=== PATIENT | female | born 1940 | race Caucasian/White ===

== ENCOUNTER 2019-09-06 09:58 | Outpatient (CLI) | payer MEDICARE, SELFPAY ==
--- NOTE | 2019-09-06 10:08 | USCV_ITS ---
Janny Sesay Age: 78 Gender: F : 1940 Exam Date: 09/06/2019 10:14 Ordering Phys: Katey Arizmendi MD Technologist: Exam Location: [facility] [place] Indication: BILATERAL LEG PAIN RIGHT LEFT Brachial 158.00 mmHg Brachial 151.00 mmHg Pressure (mmHg) Waveform Pressure (mmHg) Waveform 192.00 HOG SCALDER 185.00 177.00 DPA 166.00 1.22 Ankle/Brachial Index 1.17 138.00 Pre-Exercise Toe Pressure 115.00 0.87 Pre-Exercise Toe/Brachial Index 0.73 FINDINGS Normal resting ABIs bilaterally Normal resting TBIs bilaterally Elevated ankle pressures CONCLUSIONS No significant arterial obstruction, based on the above findings Dr Kendal Morgan MD FACC (Electronically Signed) Final Date: 06 September 2019 16:09 S
== END 2019-09-06 09:59 | disposition home or self-care (01) ==
LOC: RAD 10:04
PROVIDERS: PCP Family Medicine; Visit Provider Family Medicine
DX: M79.604 Pain in right leg (principal); M79.605 Pain in left leg
CPT/HCPCS: 93922

== ENCOUNTER 2020-10-08 17:27 | Emergency (ER) | payer MEDICARE, SELFPAY ==
[2020-10-08 17:40] VITALS: BP 159/80; PULSE 84; RESP 18; TEMP 37.2; O2SAT 95; BMI 30.8
--- NOTE | 2020-10-08 19:04 | ECG_ITS ---
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 Measurements Intervals [place] Rate: 75 P: 25 OR: 139 QRS: 78 QRSD: 84 T: 69 QT: 352 QTc: 395 Interpretive Statements SINUS RHYTHM NONSPECIFIC ST & T-WAVE ABNORMALITY Compared to ECG 05/26/2014 12:21:56 T-wave abnormality now present Myocardial infarct finding no longer present Electronically Signed On 10-09-2020 6:12:35 CDT by Iva Mclean M.D. [id number]
--- NOTE | 2020-10-08 19:04 | XRR_ITS ---
PROCEDURE INFORMATION: Exam: XR Chest Exam date and time: 10/08/2020 7:04 PM Age: 79 years old Clinical indication: Right-sided; Patient HX: Right sided cp w/ right shoulder pain & back pain TECHNIQUE: Imaging protocol: XR of the chest. Views: 1 view. Total images: 1 COMPARISON: CR Ribs LEFT w PA Chest [id number] 11/25/2014 5:18 PM FINDINGS: Lungs: No visible active interstitial or alveolar airspace disease. Pleural spaces: Unremarkable. No pleural effusion. No pneumothorax. Heart/Mediastinum: Cardiac structures and configuration within normal limits for age and stable. Mild arteriosclerosis. Bones/joints: Unremarkable for age. XR/XR chest 1V portable [id number] IMPRESSION: Nonacute.
[2020-10-08 19:40] LABS: Basophils # 0.1 10^3/uL (0.0-0.1); Basophils % 0.5 %; Eosinophils % 0.3 %; Hematocrit 45.6 % (37.0-47.0); Hemoglobin 14.5 g/dL (11.5-15.3); Lymphocytes # 1.5 10^3/uL (0.8-4.8); Lymphocytes % 13.9 %; Mean Corpuscular HGB Conc 31.8 g/dL (30.0-36.0); Mean Corpuscular Volume 94.4 fL (81-99); Mean Platelet Volume 10.1 fL (7.4-10.4); Monocytes # 0.9 10^3/uL (0.2-0.9); Monocytes % 8.4 %; Neutrophils # 8.24 10^3/uL (1.8-7.7); Neutrophils % 76.6 %; Nucleated Red Blood Cells % 0 %; Platelet Count 249 10^3/cmm (130-400); Red Blood Count 4.83 10^6/uL (4.1-5.3); Red Cell Distribution Width 13.2 % (12.1-15.1); White Blood Count 10.7 10^3/uL (4.0-10.0)
[2020-10-08 20:18] LABS: Alanine Aminotransferase 20 U/L (0-33); Albumin Level 4.1 g/dL (3.5-5.2); Alkaline Phosphatase 98 IU/L (35-105); Anion Gap 14.1 (5-19); Aspartate Amino Transferase 19 U/L (0-32); Blood Urea Nitrogen 12 mg/dL (8-23); Calcium 9.2 mg/dL (8.5-10.5); Carbon Dioxide 29 mmol/L (22-29); Chloride 101 mmol/L (98-107); Globulin 3.2 g/dL (1.3-4.6); Glucose 116 mg/dL (65-115); Osmolality Calculated 291 mOsm/kg (285-295); Potassium 4.1 mmol/L (3.5-5.1); Sodium 140 mmol/L (136-145); Total Bilirubin 0.6 mg/dL (0.15-1.2); Total Protein 7.3 g/dL (6.6-8.7)
[2020-10-08 20:47] LABS: Troponin(5th) Baseline 45 ng/L (0-10)
[2020-10-08 22:13] LABS: Troponin 5 2HR 38.58 ng/L (0-10)
[2020-10-08 22:14] LABS: Troponin 5 2HR Delta -6.42 ABS# (0-10)
--- NOTE | 2020-10-09 00:21 | W.ED.CHESTPA ---
HPI - Chest Pain General: Chief Complaint: Chest Pain Stated Complaint: Chest pain, back pain, Time Seen by Provider: 10/09/20 00:21 History of Present Illness: HPI narrative: 79-year-old female comes in today with right-sided chest wall pain. Patient reports the pain starts in her neck and goes into her right lateral rib area. Patient appears in mild to moderate pain. Patient appears well. Review of Systems General: Reports: 10 or more systems reviewed and unremarkable except in HPI and below Card: Reports: chest pain Physical Exam Const: COMMON NORMALS: no acute distress and patient oriented x3 GENERAL APPEARANCE: cooperative HENMT: COMMON NORMALS: normocephalic and Normal external nose present HEAD & SCALP: normal to inspection and normocephalic NOSE: Normal external nose present MOUTH: Normal oral and palatal mucosa present Eye: GENERAL EYE: appearance normal, both eyes and all related structures Neck/C-Spine: COMMON NORMALS: full ROM Lymph: LYMPHATIC: no lymphadenopathy noted Chest: OTHER: Right posterior chest wall tenderness. Resp: COMMON NORMALS: normal respiratory effort EFFORT & INSPECTION: Yes able to speak in complete sentences Cardio: COMMON NORMALS: regular rate and regular rhythm RATE: regular rate RHYTHM: regular rhythm GI: COMMON NORMALS: non-tender : COMMON NORMALS: Yes no CVA tenderness BLADDER/KIDNEY EXAM: Yes no CVA tenderness Back/Pelvis: COMMON NORMALS: no CVA tenderness and thoracic and lumbar spine normal to inspection Extremity: COMMON NORMALS: normal to inspection Neuro: COMMON NORMALS: patient oriented x3 and moves all extremities Psych: COMMON NORMALS: mental status grossly normal and cooperative Skin: COMMON NORMALS: no rashes or lesions noted GENERAL SKIN EXAM: no rashes or lesions noted Course Vital Signs: Vital signs: Vital Signs Temperature 98.9 F 10/08/20 17:40 Pulse Rate 78 10/09/20 00:28 Respiratory Rate 18 10/09/20 00:28 Blood Pressure 135/73 10/09/20 00:28 Pulse Oximetry 97 10/09/20 00:28 MDM - Chest Pain MDM Narrative: Medical decision making narrative: Patient came in tonight for complaints of right upper back and chest wall discomfort. On exam patient has tenderness to the right lateral posterior rib area. Patient had good range of motion of the shoulder and neck. There was some muscle tightening and spasming in the right mid upper back. Differential diagnosis includes but not limited to muscle spasm, torticollis, costochondritis. X-ray of the chest indicated no fracture or abnormalities. Laboratory values was unremarkable. Troponins was 45 at baseline and 36 at the 2-hour jade indicating a negative delta curve. EKG showed no ST elevation. Feel the patient probably has a musculoskeletal pain. Patient was given a dose of Toradol in the ER and a muscle relaxer to take when she got home. Patient will be continued on a naproxen and tizanidine. Patient reported understanding and agreed to plan. Lab Data: Labs: Lab Results 10/08/20 10/08/20 10/08/20 Range/Units 19:32 19:32 19:32 WBC 10.7 H (4.0-10.0) 10^3/ uL RBC 4.83 (4.1-5.3) 10^6/u L Hgb 14.5 (11.5-15.3) g/dL Hct 45.6 (37.0-47.0) % MCV 94.4 (81-99) fL MCH 30.0 (28.0-34.0) pg MCHC 31.8 (30.0-36.0) g/dL RDW 13.2 (12.1-15.1) % Plt Count 249 (130-400) 10^3/c mm MPV 10.1 (7.4-10.4) fL Neut % (Auto) 76.6 % Lymph % (Auto) 13.9 % [place] % (Auto) 8.4 % Eos % (Auto) 0.3 % Baso % (Auto) 0.5 % Neut # (Auto) 8.24 H (1.8-7.7) 10^3/u L Lymph # (Auto) 1.5 (0.8-4.8) 10^3/u L [place] # (Auto) 0.9 (0.2-0.9) 10^3/u L Eos # (Auto) 0.0 (0.0-0.8) 10^3/u L Baso # (Auto) 0.1 (0.0-0.1) 10^3/u L Nucleated RBC % (a uto) 0 % Nucleated RBCs # 0.0 /100WBC Sodium 140 (136-145) mmol/L Potassium 4.1 (3.5-5.1) mmol/L Chloride 101 (98-107) mmol/L Carbon Dioxide 29 (22-29) mmol/L Anion Gap 14.1 (5-19) BUN 12 (8-23) mg/dL Creatinine 0.6 (0.5-0.9) mg/dL GFR Calculation Not Reportable Glucose 116 H (65-115) mg/dL Calculated Osmolal ity 291 (285-295) mOsm/k g Calcium 9.2 (8.5-10.5) mg/dL Total Bilirubin 0.6 (0.15-1.2) mg/dL AST 19 (0-32) U/L ALT 20 (0-33) U/L Alkaline Phosphata se 98 (35-105) IU/L Troponin T Baselin e 45 H (0-10) ng/L Troponin T 120 Min [place] (0-10) ng/L Delta Troponin T (0-10) ABS# Total Protein 7.3 (6.6-8.7) g/dL Albumin 4.1 (3.5-5.2) g/dL Globulin 3.2 (1.3-4.6) g/dL 10/08/20 Range/Units 21:41 WBC (4.0-10.0) 10^3/ uL RBC (4.1-5.3) 10^6/u L Hgb (11.5-15.3) g/dL Hct (37.0-47.0) % MCV (81-99) fL MCH (28.0-34.0) pg MCHC (30.0-36.0) g/dL RDW (12.1-15.1) % Plt Count (130-400) 10^3/c mm MPV (7.4-10.4) fL Neut % (Auto) % Lymph % (Auto) % [place] % (Auto) % Eos % (Auto) % Baso % (Auto) % Neut # (Auto) (1.8-7.7) 10^3/u L Lymph # (Auto) (0.8-4.8) 10^3/u L [place] # (Auto) (0.2-0.9) 10^3/u L Eos # (Auto) (0.0-0.8) 10^3/u L Baso # (Auto) (0.0-0.1) 10^3/u L Nucleated RBC % (a uto) % Nucleated RBCs # /100WBC Sodium (136-145) mmol/L Potassium (3.5-5.1) mmol/L Chloride (98-107) mmol/L Carbon Dioxide (22-29) mmol/L Anion Gap (5-19) BUN (8-23) mg/dL Creatinine (0.5-0.9) mg/dL GFR Calculation Glucose (65-115) mg/dL Calculated Osmolal ity (285-295) mOsm/k g Calcium (8.5-10.5) mg/dL Total Bilirubin (0.15-1.2) mg/dL AST (0-32) U/L ALT (0-33) U/L Alkaline Phosphata se (35-105) IU/L Troponin T Baselin e (0-10) ng/L Troponin T 120 Min [place] 38.58 H (0-10) ng/L Delta Troponin T -6.42 L (0-10) ABS# Total Protein (6.6-8.7) g/dL Albumin (3.5-5.2) g/dL Globulin (1.3-4.6) g/dL Discharge Plan Discharge Patient Disposition: Home Clinical Impression: Atypical chest pain, Costalchondritis Condition: Stable Prescriptions: New naproxen 500 mg tablet 500 mg PO BID Qty: 14 RF: 0 tizanidine 4 mg tablet 4 mg PO BID PRN (Reason: muscle spasticity) Qty: 14 RF: 0 Discharge Orders: Discharge ED (Routine); Ordered 10/09/20 Ordered By: Juan J Juarez Referrals: Katey Arizmendi MD [Primary Care Provider] - Discharge Diet: Usual diet Discharge Activity: Increase activity as tolerated Patient Instructions: Muscle Spasm (ED), Opioid Safety Activity Restrictions/Additional Instructions: Activity as tolerated. Gentle stretching and range of motion exercises. Use ice or heat to the area for comfort. Drink plenty of water with medication. Follow-up with primary care for further instruction. Return to the ER for new concerns or worsening symptoms. Coding Level of Care Code ED Terrazzo Finisher Helper for Chg Fwd Exam Comprehensive
[2020-10-09 00:28] VITALS: BP 135/73; PULSE 78; RESP 18; O2SAT 97
[2020-10-09] MEDS: ketorolac 30 mg/mL INJ IM (00:45)
[2020-10-09] MEDS: cyclobenzaprine 10 mg Tablet 5 MG PO (01:00)
[2020-10-09 01:08] VITALS: BP 136/65; PULSE 88; RESP 18; O2SAT 96
== END 2020-10-09 01:09 | disposition home or self-care (01) ==
PROVIDERS: Emergency Medicine; Emergency Provider Nurse Practitioner Family; PCP Family Medicine
DX: R07.89 Other chest pain (principal); M94.0 Chondrocostal junction syndrome [Tietze]
CPT/HCPCS: 36415; 71045; 80053; 84484; 85025; 93005; 96372; 99283; J1885

== ENCOUNTER 2022-06-20 11:10 | Outpatient (CLI) | payer MEDICARE, SELFPAY ==
--- NOTE | 2022-06-20 11:26 | MM_ITS ---
WS: [id number] Bilateral screening 3D tomosynthesis digital mammogram, 06/20/2022 Clinical Data: SCREENING Comparison: 11/30/2012, 01/23/2009, 03/05/2007. Findings: The breast parenchymal pattern shows fibroglandular tissue. No spiculated masses or clustered calcifi cations are seen. There are no secondary signs of carcinoma. There are calcifications in the gar of small vessels. MM/[place] [id number] Impression: 1. Negative bilateral mammogram unchanged. 2. Recommend annual screening mammograms. BIRADS: 1-Negative FOLLOW UP: 1 Year Follow-up The CAD maturity checker was used.
== END 2022-06-20 11:11 | disposition home or self-care (01) ==
PROVIDERS: PCP Family Medicine; Visit Provider Family Medicine
DX: Z12.31 Encounter for screening mammogram for malignant neoplasm of breast (principal)
CPT/HCPCS: 77063; 77067

== ENCOUNTER 2022-07-08 10:06 | Outpatient (CLI) | payer MEDICARE, SELFPAY ==
[2022-07-08 10:43] VITALS: BMI 29.5
--- NOTE | 2022-07-08 11:24 | ECG_ITS ---
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 Interpretive Statements NAME OF STUDY: LEXISCAN SESTAMIBI STRESS TEST INDICATION: [Chest Pain, ] Procedure: At the baseline, the blood pressure was 132/83 mmHg with a heart rate of 56 bpm. The electrocardiogram showed normal sinus rhythm, normal axis with normal ST and T's. The Lexiscan was infused over a period of 20 seconds. A total of 0.4 mg of Lexiscan was infused. The stress phase was continued for a total of 5 minutes. Heart rate was at the end of stress phase was 75 bpm and a blood pressure of 114/74 mmHg. The EKG at the peak infusion revealed normal sinus rhythm with no significant ST-T wave changes. Sestamibi was injected 20 seconds after the Lexiscan infusion. Blood pressure at the end of recovery phase was 118/75 mmHg with a heart rate of 73 bpm. Conclusion: 1. Normal EKG response to Lexiscan infusion 2. No Lexiscan induced chest pain or cardiac arrhythmia. 3. Normal blood pressure and heart rate response. 4. Sestamibi/sestamibi perfusion scan pending; see separate report. Electronically Signed On 07-10-2022 15:17:43 CDT by Jonathan Larry M.D. [id number]
--- NOTE | 2022-07-08 11:25 | NMCV_ITS ---
NM andrew perf SPECT r/s* [id number] Janny Sesay Age: 81 Gender: F : 1940 Exam Date: 07/08/2022 11:25 Ordering Phys: Katey Arizmendi MD Technologist: SANDI Mendoza Exam Location: [facility] Indications: Chest pain, SOB STRESS TEST Please see separate stress test report in [facility] for full findings IMAGE PROTOCOL Rest/Stress 1 Lexiscan Day Radiopharmaceutical Dose (mCi) Administration Site Administered by Rest: Tc-99m 10.1 IV Florin Palm, BILLING AND ACCOUNTING STAFF ASSISTANT Sestamibi Stress:Tc-99m 32.7 IV Florin Palm, BILLING AND ACCOUNTING STAFF ASSISTANT Sestamibi Rest: 08-Jul-2022 60 Discovery 630 Stress: 08-Jul-2022 30 Discovery 630 0.4mg Lexiscan. Supine position only as patient was unable to lay prone. SPECT RESULTS Technical Quality: Excellent Raw Data Analysis: Normal Image Corrections: No attenuation or motion correction applied Summed Stress Score: 0 Summed Rest Score: 0 Summed Difference Score: 0 PERFUSION FINDINGS SPECT images demonstrate homogeneous tracer distribution throughout the myocardium. FUNCTIONAL RESULTS (calculated via Gated SPECT) Stress Image LV EF (%): 74 Stress EDV (mL):69 TID: 1.03 Stress ESV (mL):18 FUNCTIONAL FINDINGS: There is normal left ventricular systolic function. IMPRESSIONS 1. Normal myocardial perfusion imaging with no evidence of ischemia 2. LV systolic fucntion is normal Jonathan Larry MD (Electronically Signed) Final Date: 09 July 2022 15:28 S
[2022-07-08] MEDS: regadenoson 0.4 Mg/5 ml Syringe IVP (12:45)
[2022-07-08 13:08] VITALS: BP 118/75; PULSE 74
== END 2022-07-08 10:07 | disposition home or self-care (01) ==
PROVIDERS: PCP Family Medicine; Visit Provider Family Medicine
DX: Z12.31 Encounter for screening mammogram for malignant neoplasm of breast (principal); R06.02 Shortness of breath
CPT/HCPCS: 36415; 78452; 93017; 96374; A9500; J2785

== ENCOUNTER → 2023-06-15 12:44 | Outpatient (BNVA) | payer MEDICARE, SELFPAY | PROVIDERS: PCP Family Medicine; Visit Provider Nurse Practitioner Family | DX: D18.01 Hemangioma of skin and subcutaneous tissue (principal); L81.4 Other melanin hyperpigmentation; L57.8 Other skin changes due to chronic exposure to nonionizing radiation; L82.1 Other seborrheic keratosis; L57.0 Actinic keratosis; L82.0 Inflamed seborrheic keratosis; L44.8 Other specified papulosquamous disorders; Z85.828 Personal history of other malignant neoplasm of skin; Z85.820 Personal history of malignant melanoma of skin | CPT/HCPCS: 17004; 17110; 99203 ==

== ENCOUNTER 2023-06-22 10:46 | Outpatient (CLI) | payer MEDICARE, SELFPAY ==
--- NOTE | 2023-06-22 10:49 | MM_ITS ---
WS: [id number] Bilateral screening 3D tomosynthesis digital mammogram, 06/22/2023 Clinical Data: SCREENING Comparison: 06/20/2022, 11/30/2012, 01/23/2009, 03/05/2007. Findings: The breast parenchymal pattern shows fibroglandular tissue. No spiculated masses or clustered calcifi cations are seen. There are no secondary signs of carcinoma. There are ductal and vascular calcificat ions in both breasts. Impression: 1. Negative bilateral mammogram unchanged. 2. Recommend annual screening mammograms. MM/[place] [id number] BIRADS: 1-Negative FOLLOW UP: 1 Year Follow-up The CAD frequency checker was used.
== END 2023-06-22 10:47 | disposition home or self-care (01) ==
LOC: RAD 10:47
PROVIDERS: PCP Family Medicine; Visit Provider Family Medicine
DX: Z12.31 Encounter for screening mammogram for malignant neoplasm of breast (principal)
CPT/HCPCS: 77063; 77067

== ENCOUNTER → 2023-10-18 13:15 | Outpatient (BNVA) | payer MEDICARE, SELFPAY | PROVIDERS: PCP Family Medicine; Visit Provider Nurse Practitioner Family | DX: L57.0 Actinic keratosis (principal); D18.01 Hemangioma of skin and subcutaneous tissue; L81.4 Other melanin hyperpigmentation; L57.8 Other skin changes due to chronic exposure to nonionizing radiation; L82.1 Other seborrheic keratosis; L44.8 Other specified papulosquamous disorders; Z85.820 Personal history of malignant melanoma of skin; Z85.828 Personal history of other malignant neoplasm of skin | CPT/HCPCS: 17004; 99214 ==

== ENCOUNTER 2023-12-28 16:33 | Inpatient (IN) | payer MEDICARE, SELFPAY ==
[2023-12-28] VITALS (44 sets, daily range): BP systolic 100–183; BP diastolic 58–99; PULSE 55–102; RESP 12–29; TEMP 36.6; O2SAT 89–98; BMI 32.5
--- NOTE | 2023-12-28 16:35 | ECG_ITS ---
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 Measurements Intervals [place] Rate: 65 P: 0 ND: 149 QRS: 71 QRSD: 93 T: 45 QT: 396 QTc: 413 Interpretive Statements SINUS RHYTHM Early repolarization changes NONSPECIFIC T-WAVE ABNORMALITY Compared to ECG 10/08/2020 17:39:06 No significant changes Electronically Signed On 12-29-2023 20:25:17 CDT by Kendal Morgan M.D. [id number]
--- NOTE | 2023-12-28 16:35 | XRR_ITS ---
PROCEDURE INFORMATION: Exam: XR Chest Exam date and time: 12/28/2023 4:47 PM Age: 83 years old Clinical indication: Pain; Chest pressure; Additional info: Cp TECHNIQUE: Imaging protocol: Radiologic exam of the chest. Views: 1 view. COMPARISON: CR XR chest 2V* [id number] 06/09/2022 12:20 PM FINDINGS: Lungs: Unremarkable. No consolidation. Pleural spaces: Unremarkable. No pleural effusion. No pneumothorax. Heart/Mediastinum: Unremarkable. No cardiomegaly. Diaphragm: There is elevation/eventration left hemidiaphragm which is essentially unchanged. Bones/joints: Unremarkable. XR/XR chest 1V portable [id number] IMPRESSION: No acute findings.
--- NOTE | 2023-12-28 16:45 | W.ED.CHESTPA ---
Documented by User: Grant Palomino DO 12/29/23 05:13 HPI - Chest Pain General: Chief Complaint: Chest Pain Stated Complaint: Chest Pain Time Seen by Provider: 12/28/23 16:38 History of Present Illness: 83-year-old female presents to the emergency room with complaints of chest discomfort and shortness of breath. The patient notes that within the activity such as vacuuming and cleaning her house she gets shortness of breath chest discomfort and needs to sit and rest symptoms resolved shortly after she rests. She is not having any chest pain at this time. No chest pain or shortness of breath. Associated symptoms: Deny abdominal pain, dyspnea or fever(s) Related Data Home Medications Medication Instructions Recorded Confirmed propranolol 60 mg tablet 60 mg PO DIRECTED 12/28/23 12/28/23 simvastatin 10 mg tablet 10 mg PO BID Cholesterol 12/28/23 12/28/23 Allergies Allergy/AdvReac Type Severity Reaction Status Date / Time No Known Allergies Allergy Verified 10/08/20 17:40 Review of Systems Const: Denies: fever(s) or chills Card: Reports: chest pain Resp: Denies: dyspnea GI: Denies: abdominal pain : Denies: dysuria, urinary frequency or urinary urgency Musc: Denies: neck pain or back pain Skin/Breast: Denies: rash PFSH ED PFSH: Medical History (Updated 12/28/23 @ 22:55 by Rere Cortez MD) HLD (hyperlipidemia) Familial tremor HTN (hypertension) Social History (Updated 12/28/23 @ 22:35 by Rere Cortez MD) Substance/Drug Use: never Physical Exam Const: GENERAL APPEARANCE: cooperative ORIENTATION/CONSCIOUSNESS: Yes awake, Yes oriented to person, Yes oriented to place and Yes oriented to time HENMT: COMMON NORMALS: normocephalic, atraumatic and hearing grossly normal bilaterally HEAD & SCALP: normocephalic and atraumatic Resp: COMMON NORMALS: normal respiratory effort, No retractions, No use of accessory muscles and clear to auscultation bilaterally AUSCULTATION: clear to auscultation bilaterally Cardio: COMMON NORMALS: regular rate, regular rhythm and No murmurs present (Cardio) RATE: regular rate RHYTHM: regular rhythm GI: COMMON NORMALS: Soft to palpation and No hepatosplenomegaly present AUSCULTATION: Yes normoactive bowel sounds PALPATION: Yes Soft to palpation, No Tenderness to palpation present (GI), No Guarding due to palpation present (GI) and Yes No hepatosplenomegaly present Extremity: COMMON NORMALS: normal to inspection, capillary refill normal, no clubbing, cyanosis or edema, no calf tenderness and no pedal edema Neuro: SENSORIUM/ORIENTATION: Yes oriented to person, Yes oriented to place and Yes oriented to time Skin: COMMON NORMALS: no rashes or lesions noted GENERAL SKIN EXAM: no rashes or lesions noted Course Vital Signs: Vital signs: Vital Signs Temperature 97.6 F 12/29/23 03:54 Pulse Rate 63 12/29/23 03:54 Respiratory Rate 15 12/29/23 03:54 Blood Pressure 101/51 12/29/23 03:54 Pulse Oximetry 96 12/29/23 03:54 Oxygen Delivery Nh thod Room Air 12/28/23 21:13 MDM - Chest Pain Medical Decision Making Signed out Floyd Patient care was transitioned to ne at shift change. Differential diagnosis for patient with chest pain includes but is not limited to and based on the above HPI, review of systems and physical exam: Pneumonia. unstable angina. angina. Acute coronary syndrome / LA. Pulmonary embolism. Costochondritis / musculoskeletal. Pleurisy. Pericarditis. Esophageal spasm. Pancreatis. Cholecystitis. Orders placed to evaluate differential diagnosis based on the above differential, HPI and physical exam Chest x-ray: No acute process. No infiltrate. No pneumothorax. This was reviewed and interpreted by myself the ER physician. EKG: Time 1632. Rate 65. Normal sinus rhythm, nonspecific T wave abnormality, no ectopy, normal CA & QRS intervals, This was reviewed and interpreted by the ER physician at 1635 Repeat EKG: Time 1821. Rate 55. Sinus bradycardia, no ectopy, normal CA & QRS intervals, This was reviewed and interpreted by myself the ER physician at 1825. Rate has decreased by 10 bpm. Continued T wave abnormalities Lab Review: Laboratory results were reviewed and interpreted by myself the emergency room physician. No leukocytosis. No anemia. No renal failure. Initial troponin is elevated at 66 the second is significantly decreased at 56. Consultation: I spoke with Dr. Larry who is on-call for cardiology. He recommends admission and likely will The patient tomorrow. I reviewed the patient's medical record. Reexamination: Patient remained stable. No increased work of breathing. No altered mental status. No focal motor deficits. Consultation: I spoke with Dr. Cortez who is on-call for the hospitalist service who agrees to admission. Assessment and plan: Chest pain Elevated troponin -I discussed the patient with the hospitalist on-call who is admitting the patient. - Discussed findings and plan with patient. Answered any questions. - All laboratory values were reviewed and interpreted personally by myself, the ER physician - All imaging was reviewed and interpreted personally by myself, the ER physician. - Evaluation and treatment of this problem were appropriate in the emergency setting Lab Data 12/29/23 03:25 12/29/23 03:25 Radiology Impressions Chest X-Ray 12/28/23 16:35 IMPRESSION: No acute findings. Chest CTA 12/28/23 22:19 IMPRESSION: Pulmonary emboli in bilateral main and segmental pulmonary arteries with right heart strain. ADDENDUM: 12/29/23 0057 The findings were acknowledged and understood.THIS REPORT CONTAINS FINDINGS THAT MAY BE CRITICAL TO PATIENT CARE. As of 12:55 AM CDT on 12/29/2023, RERE CORTEZ confirmed receipt the exam report, is aware of the critical finding and indicated no conference call was necessary to discussed the exam findings. Venous Duplex 12/28/23 22:27 IMPRESSION: Left popliteal, peroneal and posterior tibial deep vein thrombosis. Laboratory Results WBC 9.13 10^3/uL (3.29-11.43) 12/28/23 16:40 RBC 5.16 10^6/uL (3.85-5.65) 12/28/23 16:40 Hgb 15.40 g/dL (11.27-16.99) 12/28/23 16:40 Hct 47.5 % (36-47) H 12/28/23 16:40 MCV 92.1 fl (85-98) 12/28/23 16:40 MCH 29.8 pg (27-33) 12/28/23 16:40 MCHC 32.4 g/dL (30-55) 12/28/23 16:40 RDW 13.4 % (12.1-15.1) 12/28/23 16:40 Plt Count 251 10^3/cmm (157-399) 12/28/23 16:40 MPV 9.4 fL (7.4-10.4) 12/28/23 16:40 Neut % (Auto) 56.9 % 12/28/23 16:40 Lymph % (Auto) 33.2 % 12/28/23 16:40 [place] % (Auto) 7.3 % 12/28/23 16:40 Eos % (Auto) 1.9 % 12/28/23 16:40 Baso % (Auto) 0.5 % 12/28/23 16:40 Neut # (Auto) 5.19 10^3/uL (1.8-7.7) 12/28/23 16:40 Lymph # (Auto) 3.0 10^3/uL (0.8-4.8) 12/28/23 16:40 [place] # (Auto) 0.7 10^3/uL (0.2-0.9) 12/28/23 16:40 Eos # (Auto) 0.2 10^3/uL (0.0-0.8) 12/28/23 16:40 Baso # (Auto) 0.1 10^3/uL (0.0-0.1) 12/28/23 16:40 Nucleated RBC % (auto) 0 % 12/28/23 16:40 Nucleated RBCs # 0.0 /100WBC 12/28/23 16:40 D-Dimer 12.76 ug/mLFEU (0-0.59) H 12/28/23 16:40 Sodium 141 mmol/L (136-145) 12/28/23 16:40 Potassium 4.3 mmol/L (3.5-5.1) 12/28/23 16:40 Chloride 103 mmol/L (98-107) 12/28/23 16:40 Carbon Dioxide 26 mmol/L (22-29) 12/28/23 16:40 Anion Gap 16.3 (5-19) 12/28/23 16:40 BUN 17 mg/dL (8-23) 12/28/23 16:40 Creatinine 0.8 mg/dL (0.5-0.9) 12/28/23 16:40 GFR Calculation Not Reportable 12/28/23 16:40 Glucose 109 mg/dL (65-115) 12/28/23 16:40 Calculated Osmolality 294 mOsm/kg (285-295) 12/28/23 16:40 Calcium 9.7 mg/dL (8.5-10.5) 12/28/23 16:40 Total Bilirubin 0.3 mg/dL (0.15-1.2) 12/28/23 16:40 AST 17 U/L (0-32) 12/28/23 16:40 ALT 21 U/L (0-33) 12/28/23 16:40 Alkaline Phosphatase 98 U/L (35-105) 12/28/23 16:40 Troponin T Baseline 66 ng/L (0-10) H 12/28/23 16:40 Troponin T 120 Minute 56.30 ng/L (0-10) H 12/28/23 18:38 Delta Troponin T -9.70 ABS# (0-10) L 12/28/23 18:38 Total Protein 6.7 g/dL (6.6-8.7) 12/28/23 16:40 Albumin 4.0 g/dL (3.5-5.2) 12/28/23 16:40 Globulin 2.7 g/dL (1.3-4.6) 12/28/23 16:40 Clincial Decision Support The following clinical decision support tools were used to aid in care of the patient HEART Score -> History: Highly Suspicious, EKG: Non-specific Changes, Age: 65 or more yrs, Risk Factors: 1 or 2 Risk Factors, Troponin: Baseline Trop >45 ng/L. Resulting HEART Score: 8. Discharge Plan Discharge Patient Disposition: Admitted As Inpatient Admit Provider: Rere Cortez Clinical Impression: Chest pain, Elevated troponin Condition: Stable Coding Level of Care Code ED Delinquency Prevention Social Worker for Chg Fwd Documented by User: Stephanie Floyd MD 12/28/23 20:39 HPI - Chest Pain General: Chief Complaint: Chest Pain Stated Complaint: Chest Pain Time Seen by Provider: 12/28/23 16:38 Related Data Home Medications Medication Instructions Recorded Confirmed propranolol 60 mg tablet 60 mg PO DIRECTED 12/28/23 12/28/23 simvastatin 10 mg tablet 10 mg PO BID Cholesterol 12/28/23 12/28/23 Allergies Allergy/AdvReac Type Severity Reaction Status Date / Time No Known Allergies Allergy Verified 10/08/20 17:40 [facility] ED PFSH: Medical History (Updated 12/28/23 @ 22:55 by Rere Cortez MD) HLD (hyperlipidemia) Familial tremor HTN (hypertension) Social History (Updated 12/28/23 @ 22:35 by Rere Cortez MD) Substance/Drug Use: never Course Vital Signs: Vital signs: Vital Signs Temperature 97.6 F 12/29/23 03:54 Pulse Rate 63 12/29/23 03:54 Respiratory Rate 15 12/29/23 03:54 Blood Pressure 101/51 12/29/23 03:54 Pulse Oximetry 96 12/29/23 03:54 Oxygen Delivery Nh thod Room Air 12/28/23 21:13 MDM - Chest Pain Medical Decision Making Patient care was transitioned to ne at shift change. Differential diagnosis for patient with chest pain includes but is not limited to and based on the above HPI, review of systems and physical exam: Pneumonia. unstable angina. angina. Acute coronary syndrome / LA. Pulmonary embolism. Costochondritis / musculoskeletal. Pleurisy. Pericarditis. Esophageal spasm. Pancreatis. Cholecystitis. Orders placed to evaluate differential diagnosis based on the above differential, HPI and physical exam Chest x-ray: No acute process. No infiltrate. No pneumothorax. This was reviewed and interpreted by myself the ER physician. EKG: Time 1632. Rate 65. Normal sinus rhythm, nonspecific T wave abnormality, no ectopy, normal CA & QRS intervals, This was reviewed and interpreted by the ER physician at 1635 Repeat EKG: Time 1821. Rate 55. Sinus bradycardia, no ectopy, normal CA & QRS intervals, This was reviewed and interpreted by myself the ER physician at 1825. Rate has decreased by 10 bpm. Continued T wave abnormalities Lab Review: Laboratory results were reviewed and interpreted by myself the emergency room physician. No leukocytosis. No anemia. No renal failure. Initial troponin is elevated at 66 the second is significantly decreased at 56. Consultation: I spoke with Dr. Larry who is on-call for cardiology. He recommends admission and likely will The patient tomorrow. I reviewed the patient's medical record. Reexamination: Patient remained stable. No increased work of breathing. No altered mental status. No focal motor deficits. Consultation: I spoke with Dr. Cortez who is on-call for the hospitalist service who agrees to admission. Assessment and plan: Chest pain Elevated troponin -I discussed the patient with the hospitalist on-call who is admitting the patient. - Discussed findings and plan with patient. Answered any questions. - All laboratory values were reviewed and interpreted personally by myself, the ER physician - All imaging was reviewed and interpreted personally by myself, the ER physician. - Evaluation and treatment of this problem were appropriate in the emergency setting Lab Data 12/29/23 03:25 12/29/23 03:25 Radiology Impressions Chest X-Ray 12/28/23 16:35 IMPRESSION: No acute findings. Chest CTA 12/28/23 22:19 IMPRESSION: Pulmonary emboli in bilateral main and segmental pulmonary arteries with right heart strain. ADDENDUM: 12/29/23 0057 The findings were acknowledged and understood.THIS REPORT CONTAINS FINDINGS THAT MAY BE CRITICAL TO PATIENT CARE. As of 12:55 AM CDT on 12/29/2023, RERE CORTEZ confirmed receipt the exam report, is aware of the critical finding and indicated no conference call was necessary to discussed the exam findings. Venous Duplex 12/28/23 22:27 IMPRESSION: Left popliteal, peroneal and posterior tibial deep vein thrombosis. Laboratory Results WBC 9.13 10^3/uL (3.29-11.43) 12/28/23 16:40 RBC 5.16 10^6/uL (3.85-5.65) 12/28/23 16:40 Hgb 15.40 g/dL (11.27-16.99) 12/28/23 16:40 Hct 47.5 % (36-47) H 12/28/23 16:40 MCV 92.1 fl (85-98) 12/28/23 16:40 MCH 29.8 pg (27-33) 12/28/23 16:40 MCHC 32.4 g/dL (30-55) 12/28/23 16:40 RDW 13.4 % (12.1-15.1) 12/28/23 16:40 Plt Count 251 10^3/cmm (157-399) 12/28/23 16:40 MPV 9.4 fL (7.4-10.4) 12/28/23 16:40 Neut % (Auto) 56.9 % 12/28/23 16:40 Lymph % (Auto) 33.2 % 12/28/23 16:40 [place] % (Auto) 7.3 % 12/28/23 16:40 Eos % (Auto) 1.9 % 12/28/23 16:40 Baso % (Auto) 0.5 % 12/28/23 16:40 Neut # (Auto) 5.19 10^3/uL (1.8-7.7) 12/28/23 16:40 Lymph # (Auto) 3.0 10^3/uL (0.8-4.8) 12/28/23 16:40 [place] # (Auto) 0.7 10^3/uL (0.2-0.9) 12/28/23 16:40 Eos # (Auto) 0.2 10^3/uL (0.0-0.8) 12/28/23 16:40 Baso # (Auto) 0.1 10^3/uL (0.0-0.1) 12/28/23 16:40 Nucleated RBC % (auto) 0 % 12/28/23 16:40 Nucleated RBCs # 0.0 /100WBC 12/28/23 16:40 D-Dimer 12.76 ug/mLFEU (0-0.59) H 12/28/23 16:40 Sodium 141 mmol/L (136-145) 12/28/23 16:40 Potassium 4.3 mmol/L (3.5-5.1) 12/28/23 16:40 Chloride 103 mmol/L (98-107) 12/28/23 16:40 Carbon Dioxide 26 mmol/L (22-29) 12/28/23 16:40 Anion Gap 16.3 (5-19) 12/28/23 16:40 BUN 17 mg/dL (8-23) 12/28/23 16:40 Creatinine 0.8 mg/dL (0.5-0.9) 12/28/23 16:40 GFR Calculation Not Reportable 12/28/23 16:40 Glucose 109 mg/dL (65-115) 12/28/23 16:40 Calculated Osmolality 294 mOsm/kg (285-295) 12/28/23 16:40 Calcium 9.7 mg/dL (8.5-10.5) 12/28/23 16:40 Total Bilirubin 0.3 mg/dL (0.15-1.2) 12/28/23 16:40 AST 17 U/L (0-32) 12/28/23 16:40 ALT 21 U/L (0-33) 12/28/23 16:40 Alkaline Phosphatase 98 U/L (35-105) 12/28/23 16:40 Troponin T Baseline 66 ng/L (0-10) H 12/28/23 16:40 Troponin T 120 Minute 56.30 ng/L (0-10) H 12/28/23 18:38 Delta Troponin T -9.70 ABS# (0-10) L 12/28/23 18:38 Total Protein 6.7 g/dL (6.6-8.7) 12/28/23 16:40 Albumin 4.0 g/dL (3.5-5.2) 12/28/23 16:40 Globulin 2.7 g/dL (1.3-4.6) 12/28/23 16:40 All radiology interpretation(s) finalized by discharge Discharge Plan Discharge Patient Disposition: Admitted As Inpatient Admit Provider: Rere Cortez Clinical Impression: Chest pain, Elevated troponin Condition: Stable Coding Level of Care Code ED Delinquency Prevention Social Worker for Kvng Rashid
[2023-12-28 16:53] LABS: Basophils # 0.1 10^3/uL (0.0-0.1); Basophils % 0.5 %; Eosinophils # 0.2 10^3/uL (0.0-0.8); Eosinophils % 1.9 %; Hematocrit 47.5 % (36-47); Lymphocytes % 33.2 %; Mean Corpuscular HGB Conc 32.4 g/dL (30-55); Mean Corpuscular Hemoglobin 29.8 pg (27-33); Mean Corpuscular Volume 92.1 fl (85-98); Mean Platelet Volume 9.4 fL (7.4-10.4); Monocytes # 0.7 10^3/uL (0.2-0.9); Monocytes % 7.3 %; Neutrophils # 5.19 10^3/uL (1.8-7.7); Neutrophils % 56.9 %; Nucleated Red Blood Cells % 0 %; Platelet Count 251 10^3/cmm (157-399); Red Blood Count 5.16 10^6/uL (3.85-5.65); Red Cell Distribution Width 13.4 % (12.1-15.1); White Blood Count 9.13 10^3/uL (3.29-11.43)
[2023-12-28] MEDS: aspirin 81 mg Chew Tablet 324 MG PO (16:56)
[2023-12-28 17:21] LABS: Alanine Aminotransferase 21 U/L (0-33); Alkaline Phosphatase 98 U/L (35-105); Anion Gap 16.3 (5-19); Aspartate Amino Transferase 17 U/L (0-32); Blood Urea Nitrogen 17 mg/dL (8-23); Calcium 9.7 mg/dL (8.5-10.5); Carbon Dioxide 26 mmol/L (22-29); Chloride 103 mmol/L (98-107); Creatinine Clr Calc Pharmacy 60.7563; Globulin 2.7 g/dL (1.3-4.6); Glucose 109 mg/dL (65-115); Osmolality Calculated 294 mOsm/kg (285-295); Potassium 4.3 mmol/L (3.5-5.1); Sodium 141 mmol/L (136-145); Total Bilirubin 0.3 mg/dL (0.15-1.2); Total Protein 6.7 g/dL (6.6-8.7)
[2023-12-28 17:24] LABS: Troponin(5th) Baseline 66 ng/L (0-10)
--- NOTE | 2023-12-28 18:35 | ECG_ITS ---
[facility] Test Date: 2023-12-28 Pat Name: Janny Sseay Department: Room: Gender: Female [place]: : 1940 Requested By: Roshan Muir Order Number: [id number] Mariah MD: Kendal Morgan M.D. Measurements Intervals Sandy Rate: 55 P: 80 TN: 157 QRS: 66 QRSD: 97 T: 20 QT: 431 QTc: 415 Interpretive Statements SINUS BRADYCARDIA MODERATE T-WAVE ABNORMALITY, CONSIDER ANTERIOR ISCHEMIA [-0.1+ mV T-WAVE IN V3/V4] Compared to ECG 12/28/2023 16:32:20 Possible ischemia now present Sinus rhythm no longer present T-wave abnormality still present Electronically Signed On 12-29-2023 20:30:06 CDT by Kendal Morgan M.D. [id number]
[2023-12-28] MEDS: LORazepam 1 mg Tablet PO (19:54)
[2023-12-28 19:59] LABS: D Dimer 12.76 ug/mLFEU (0-0.59)
--- NOTE | 2023-12-28 22:19 | CTR_ITS ---
PROCEDURE INFORMATION: Exam: CTA Chest With Contrast Exam date and time: 12/28/2023 10:55 PM Age: 83 years old Clinical indication: Shortness of breath; Additional info: Assess for pe TECHNIQUE: Imaging protocol: Computed tomographic angiography of the chest with contrast. Exam focused on the arteries. 3D rendering (Not supervised by radiologist): MIP and/or 3D reconstructed images were created by the technologist. Radiation optimization: All CT scans at this facility use at least one of these dose optimization techniques: automated exposure control; mA and/or kV adjustment per patient size (includes targeted exams where dose is matched to clinical indication); or iterative reconstruction. Contrast material: OMNI 350; Contrast volume: 75 ml; Contrast route: INTRAVENOUS (IV); COMPARISON: CR XR chest 1V portable [id number] 12/28/2023 4:47 PM RADIATION DOSE METRICS: Total DLP (mGy-cm): 410.41 FINDINGS: Pulmonary arteries: Bilateral pulmonary emboli in the main pulmonary arteries with partially occluded bilateral main pulmonary arteries, bilateral lower lobe pulmonary arteries, right upper lobe pulmonary artery and complete occlusion of the left upper lobe pulmonary artery. Aorta: Unremarkable. No aortic aneurysm. No aortic dissection. Lungs: Bilateral lower lobe atelectasis. No focal infiltrates. Pleural spaces: Unremarkable. No pneumothorax. No pleural effusion. Heart: Unremarkable. No cardiomegaly. No pericardial effusion. Heart RV/LV ratio: RV to LV ratio is 1.2. Lymph nodes: Unremarkable. No enlarged lymph nodes. Kidneys: Nonobstructing stone in the upper pole of the left kidney measuring 1.6 cm. Bones/joints: Mild curvature of the upper thoracic spine convex to the right. Mild multilevel degenerative of the thoracic spine with small anterior osteophytes. Soft tissues: Unremarkable. CT/CT angio chest PE protcl [id number] IMPRESSION: Pulmonary emboli in bilateral main and segmental pulmonary arteries with right heart strain.
--- NOTE | 2023-12-28 22:25 | P.HP_ITS ---
Providers/Chief Complaint 2 Admitting Physician: Kenyon Long Primary Care Provider: Katey Arizmendi MD Chief Complaint: Chest Pain History of Present Illness Very pleasant 83-year-old lady with history of hypertension, essential tremor for which she is on propranolol, hyperlipidemia for which she is on simvastatin, had in the past had some symptoms of stable angina with exertion, was assessed by stress test a year and a half ago which showed no evidence of ischemia. 3 weeks ago she had COVID from which she is still having some mild productive cough. In the last week episodes had significantly worsened with severe pain on even minimal exertion/walking in the center of her chest, without radiation. She does not currently have the pain at rest. She had noticed some swelling of her ankles over the last 3 weeks although they are better now. 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 Reports has been having some numbness of her legs bilaterally. She denies any saddle anesthesia, fecal or urinary incontinence. She reports having dizziness with walking which has been making it difficult for her to ambulate at all. Her blood pressure is quite elevated in ER. Review of Systems 2 Const: Denies: fever(s), chills, body aches or malaise ENMT: Denies: throat pain Card: Reports: chest pain, edema, swelling of feet/ankles and dyspnea on exertion; Denies: pre-syncope Resp: Denies: dyspnea, productive cough, change in phlegm color or hemoptysis GI: Reports: diarrhea (Intermittent, not currently.); Denies: abdominal pain, nausea, vomiting, constipation, hematochezia or melena : Denies: flank pain, urinary frequency or hematuria Musc: Denies: back pain, joint swelling or joint redness Skin/Breast: Denies: rash or new lesions Neuro: Reports: numbness in extremities, difficulty walking and dizziness; Denies: headache(s) Medications/Allergies Home Medications Medication Instructions Recorded Confirmed Last Taken Type propranolol 60 mg tablet 60 mg PO DIRECTED 12/28/23 12/28/23 Unknown History simvastatin 10 mg tablet 10 mg PO BID Cholesterol 12/28/23 12/28/23 Unknown History Allergies Allergy/AdvReac Type Severity Reaction Status Date / Time No Known Allergies Allergy Verified 10/08/20 17:40 PFSH Acute 2 PFSH: Medical History (Updated 12/28/23 @ 22:55 by Kenyon Long MD) HLD (hyperlipidemia) Familial tremor HTN (hypertension) Social History (Updated 12/28/23 @ 22:35 by Kenyon Long MD) Substance/Drug Use: never Vitals/I&O/Wt Last Vital Signs Temp 97.8 F 12/28/23 16:49 Pulse 55 L 12/28/23 20:38 Resp 16 12/28/23 20:38 BP 174/97 12/28/23 20:38 Pulse Ox 93 12/28/23 20:38 O2 Del Method Room Air 12/28/23 21:13 Weight last 48 hrs Weight 91.626 kg Weight 91.626 kg Physical Exam 2 Const: COMMON NORMALS: patient oriented x3 and alert GENERAL APPEARANCE: c ooperative ORIENTATION/CONSCIOUSNESS: Yes awake HENMT: COMMON NORMALS: oropharynx normal Neck/C-Spine: COMMON NORMALS: no JVD Resp: COMMON NORMALS: normal respiratory effort and clear to auscultation bilaterally AUSCULTATION: clear to auscultation bilaterally Cardio: COMMON NORMALS: no JVD, regular rhythm, S1 normal heart sound present, S2 normal heart sound present and No murmurs present (Cardio) RHYTHM: regular rhythm HEART SOUNDS: S1 normal heart sound present and S2 normal heart sound present GI: COMMON NORMALS: Normal to inspection, nondistended, normoactive bowel sounds present, Soft to palpation and non-tender PALPATION: Yes Soft to palpation Extremity: COMMON NORMALS: no joint enlargement and no pedal edema Neuro: COMMON NORMALS: patient oriented x3 and moves all extremities S ENSORIUM/ORIENTATION: Yes alert Skin: COMMON NORMALS: no rashes or lesions noted GENERAL SKIN EXAM: no rashes or lesions noted Data 12/28/23 16:40 12/28/23 16:40 A&P Assessment and plan (1) Chest pain: Severely progressed exertional angina especially over the last week with severe central chest pain with minimal walking/exertion, exertional intolerance. Reviewed vitals, CBC, CMP, troponin, EKG, on my interpretation without sign of acute WI, pending official read but with some signs of possible ischemia with T wave inversion in V2, V3, V4. T wave flattening in III; chest x-ray, ED provider note, discussed with the provider. Concern for possible unstable angina. Mild to moderate troponin elevation 56- 66. Chest pain, exertional intolerance. Also reports lower extreme edema over the last 3 weeks although currently is better. Assess for possible unstable angina. Continue aspirin, statin, consider bridge to high intensity statin. On propranolol, not a candidate for escalation of beta-tammi at current time with bradycardia, heart rate 55. Consider anticoagulation in case of recurrence of chest pain. Monitor on telemetry with risk of arrhythmia. Obtain TTE. Cardiology's been consulted as well, keep n.p.o. with consideration of possible coronary angiogram as per discussion with ER physician and with her. Pending cardiac evaluation. (2) Elevated troponin: As above. (3) Elevated d-dimer: Had COVID 3 weeks ago. Chest pain, exertional intolerance. Assess for possible PE, discussed with her. With V/Q reagent shortage, discussed with her regarding obtaining CTA, possible risks of contrast nephropathy. She would like to proceed, requested CTA PE protocol. (4) Uncontrolled hypertension: Blood pressure is elevated in ER, up to 171/99. Suboptimally controlled with propranolol. Will benefit from additional measures for optimization of hypertension control. At the same time with bradycardia, heart rate 55. Will start amlodipine for now, hold ACEI/ARB for now in anticipation of contrast studies, but consider switching from amlodipine to ACEI/ARB for long-term management. (5) Productive cough: After recovering from COVID. Possible component of mild bronchitis. Clear to auscultation. Reports some intermittent phlegm production and cough. Add Mucinex, flutter valve. Chest x-ray reviewed, no acute findings. D-dimer elevated, additional workup for possible PE as above. (6) Difficulty walking: Reports dizziness, difficulty with ambulating, with uncontrolled hypertension, recent COVID, assess for possible small posterior circulation CVA. MRI requested for later in the afternoon after cardiac workup. Please obtain PT assessment once cardiac workup/treatment is complete for possible unstable angina. For now obtain CT head. Check orthostatics Additionally reports history of lower back disc herniation treated with chemonucleolysis many years ago, recently has been having some numbness in bilateral lower extremities. Plan Recent COVID-19 3 weeks ago: D-dimer elevated, additional workup for possible PE as above. Familial tremor: On propranolol HLD: On simvastatin, in case of further finding of cardiovascular disease consider upgrade to high intensity statin. Attestations 2 Medical Necessity Statement*: Admission of over 2 midnights anticipated for assessment of management of chest pain, possible unstable angina requiring further cardiac assessment, coronary angiography, with uncontrolled hypertension, as well as dizziness and difficulty ambulating with cardiovascular risk factors and risk of stroke. Diagnoses Chest pain R07.9 Elevated troponin R79.89 Elevated d-dimer R79.89 Uncontrolled hypertension I10 Productive cough R05.8 Difficulty walking R26.2
--- NOTE | 2023-12-28 22:27 | USR_ITS ---
PROCEDURE INFORMATION: Exam: US Duplex Lower Extremity Veins, Bilateral Exam date and time: 12/28/2023 11:23 PM Age: 83 years old Clinical indication: Edema, localized; Lower extremity, bilateral; Additional info: Recent le edema, elev ddimer, assess for dvt TECHNIQUE: Imaging protocol: Real-time duplex ultrasound of the bilateral extremities with 2-D cortez scale, color Doppler flow and spectral waveform analysis including responses to compression and other maneuvers (when performed) with image documentation. Complete exam focused on the lower extremity veins. COMPARISON: No relevant prior studies available. FINDINGS: Right deep veins: Unremarkable. The common femoral, femoral, proximal profunda femoral and popliteal veins are patent without thrombus. Normal Doppler waveforms. Normal compressibility and/or augmentation response. Left deep veins: Partially occlusive thrombus of the left popliteal vein and fully occlusive thrombus of the left peroneal, and left posterior tibial veins. The common femoral, femoral and proximal profunda femoral are patent without thrombus. Normal Doppler waveforms. Superficial veins: Greater saphenous veins at the saphenofemoral junctions are patent bilaterally without thrombus. Soft tissues: Unremarkable. US/[place] [id number] IMPRESSION: Left popliteal, peroneal and posterior tibial deep vein thrombosis.
--- NOTE | 2023-12-28 22:35 | ECG_ITS ---
[facility] Test Date: 2023-12-28 Pat Name: Janny Sesay Department: Room: 105 Gender: Female Feather Mixer: : 1940 Requested By: Roshan Muir Order Number: [id number] Mariah MD: Kendal Morgan M.D. Measurements Intervals Jackson Rate: 66 P: 1 AR: 160 QRS: -11 QRSD: 100 T: 24 QT: 417 QTc: 439 Interpretive Statements SINUS RHYTHM VOLTAGE CRITERIA FOR LVH [MEETS CRITERIA IN ONE OF: R(aVL), S(V1), R(V5), R(V5/V6)+S(V1)] MODERATE T-WAVE ABNORMALITY, CONSIDER ANTEROLATERAL ISCHEMIA [-0.1+ mV T-WAVE IN V3-V6] Compared to ECG 12/28/2023 18:21:35 Left ventricular hypertrophy now present Sinus bradycardia no longer present T-wave abnormality still present Possible ischemia still present Electronically Signed On 12-29-2023 20:29:41 CDT by Kendal Morgan M.D. [email or web address]
[2023-12-28] MEDS: iohexol 350 mg/mL 500 mL Btl (per mL) IV (23:07)
[2023-12-28] MEDS: enoxaparin 100 mg/mL Syringe 90 MG SUBCUT (23:52)
[2023-12-28] MEDS: amlodipine 5 mg Tablet PO (23:53)
[2023-12-29] VITALS (70 sets, daily range): BP systolic 101–191; BP diastolic 51–84; PULSE 57–74; RESP 13–29; TEMP 36.3–36.6; O2SAT 90–100
[2023-12-29 04:11] LABS: Basophils % 0.5 %; Eosinophils # 0.1 10^3/uL (0.0-0.8); Eosinophils % 1.4 %; Hematocrit 41.7 % (36-47); Lymphocytes # 2.4 10^3/uL (0.8-4.8); Lymphocytes % 28.5 %; Mean Corpuscular HGB Conc 32.9 g/dL (30-55); Mean Corpuscular Hemoglobin 30.2 pg (27-33); Mean Corpuscular Volume 92.1 fl (85-98); Mean Platelet Volume 9.5 fL (7.4-10.4); Monocytes # 0.6 10^3/uL (0.2-0.9); Monocytes % 6.4 %; Neutrophils # 5.37 10^3/uL (1.8-7.7); Neutrophils % 62.8 %; Nucleated Red Blood Cells % 0 %; Platelet Count 202 10^3/cmm (157-399); Red Blood Count 4.53 10^6/uL (3.85-5.65); Red Cell Distribution Width 13.5 % (12.1-15.1); White Blood Count 8.55 10^3/uL (3.29-11.43)
[2023-12-29 04:25] LABS: Anion Gap 12.9 (5-19); Blood Urea Nitrogen 17 mg/dL (8-23); Calcium 9.3 mg/dL (8.5-10.5); Carbon Dioxide 25 mmol/L (22-29); Chloride 105 mmol/L (98-107); Creatinine Clr Calc Pharmacy 61.0157; Glucose 151 mg/dL (65-115); Osmolality Calculated 292 mOsm/kg (285-295); Potassium 3.9 mmol/L (3.5-5.1); Sodium 139 mmol/L (136-145)
--- NOTE | 2023-12-29 08:13 | P.CONIM_ITS ---
Providers/Reason For Consult 2 Consulting Physician/Specialty*: Jonathan Larry MD/ Cardiology Reason for Consult*: NSTEMI/ PE Requesting Physician: Dr Floyd Attending Physician: Kenyon Long Primary Care Provider: Katey Arizmendi MD History of Present Illness History of Present Illness Jannybetzaida Sesay is a 83 year old female who has no significant prior cardiac history, had recent COVID presented to hospital with worsening shortness of breath and chest pain symptoms. According to patient she feels substernal pressure that is severe with exertion. Also has been short of breath. Her troponin is elevated. EKG shows T wave inversions in anterior/ anterolateral wall leads. She has been having on and off chest discomfort episodes for a few months but now have worsened. Patient had elevated d dimer and cta showing bilateral PE and left lower extremity DVT Review of Systems 2 Const: Denies: fever(s), chills, body aches or malaise ENMT: Denies: throat pain Card: Reports: chest pain, edema, swelling of feet/ankles and dyspnea on exertion; Denies: pre-syncope Resp: Denies: dyspnea, productive cough, change in phlegm color or hemoptysis GI: Denies: nausea, vomiting, constipation, hematochezia or melena : Denies: flank pain, urinary frequency or hematuria Musc: Denies: back pain, joint swelling or joint redness Skin/Breast: Denies: rash or new lesions Neuro: Reports: numbness in extremities, difficulty walking and dizziness; Denies: headache(s) Medications/Allergies Home Medications Medication Instructions Recorded Confirmed Last Taken Type propranolol 60 mg tablet 60 mg PO DIRECTED 12/28/23 12/28/23 Unknown History simvastatin 10 mg tablet 10 mg PO BID Cholesterol 12/28/23 12/28/23 Unknown History Allergies Allergy/AdvReac Type Severity Reaction Status Date / Time No Known Allergies Allergy Verified 10/08/20 17:40 Current Medications Generic Name Dose Route Start Last Admin Trade Name Freq PRN Reason Stop Dose Admin Amlodipine Besylate 5 mg 12/28/23 22:40 12/28/23 23:53 Amlodipine 5 Mg Tablet PO 5 mg DAILY FELY Administration Enoxaparin Sodium 90 mg 12/28/23 23:15 12/28/23 23:52 Enoxaparin 100 Mg/Ml Syringe 1 mg/kg (90 mg) 90 mg SUBCUT Administration Q12H FELY PFSH Acute 2 PFSH: Medical History HLD (hyperlipidemia) Familial tremor HTN (hypertension) Social History Substance/Drug Use: never Vitals/I&O/Wt Last Vital Signs Temp 97.4 F L 12/29/23 08:00 Pulse 69 12/29/23 08:00 Resp 21 H 12/29/23 08:00 BP 118/72 12/29/23 08:00 Pulse Ox 97 12/29/23 08:00 O2 Del Method Nasal Cannula 12/29/23 08:00 O2 Flow Rate 2 12/29/23 08:00 12/28/23 12/29/23 12/29/23 22:59 06:59 14:59 Intake Total 450 / 450 Output Total 150 / 150 Balance 450 / 450 -150 / -150 Weight last 48 hrs Weight 203 lb 11.2 oz Weight 202 lb Weight 202 lb Physical Exam 2 Narrative: GENERAL: Patient is alert, awake and oriented x3. [] NECK: No jugular vein distension. [] HEENT: No cyanosis. No icterus. No pallor. [] HEART: Regular S1 and S2. No murmur, rub or gallop. [] LUNGS: Clear to auscultate bilaterally. [] CENTRAL NERVOUS SYSTEM: Grossly nonfocal. [] EXTREMITIES: Lower extremities with 1+ edema bilaterally. Data 12/30/23 03:20 12/30/23 03:20 A&P Assessment and plan (1) Bilateral pulmonary embolism: (2) Left leg DVT: (3) Uncontrolled hypertension: (4) Chest pain: (5) NSTEMI (non-ST elevated myocardial infarction): Plan Patient has been found to have bilateral PE and DVT. Continue anticoagulation. However her chest pain appears to be ischemic with T wave inversions seen in anterior and anterolateral leads. This is consistent with non-ST elevation PA. We will proceed with coronary angiogram with possible PCI. Aspirin given. We will proceed with coronary angiogram with possible PCI. Risks and benefits of 0 been discussed. She understand these and wants to proceed. ECHO ordered NPO Thank you for involving us with care of this patient. We will continue to follow. please call with questions. Consult Attestations 2 Medical Necessity Statement: Care expected to cross 2 midnights. Coding Level of Care Code Acute Code for Chg Fwd Diagnoses Bilateral pulmonary embolism I26.99 Left leg DVT I82.402 Uncontrolled hypertension I10 Chest pain R07.9 NSTEMI (non-ST elevated myocardial infarction) I21.4
[2023-12-29] MEDS: enoxaparin 100 mg/mL Syringe 90 MG SUBCUT (09:04)
[2023-12-29] MEDS: guaiFENesin 600 mg Tablet PO ×2 (09:05→17:19)
[2023-12-29] MEDS: amlodipine 5 mg Tablet PO (09:05)
[2023-12-29] MEDS: aspirin 325 mg Tablet PO (09:05)
[2023-12-29] MEDS: atorvastatin 40 mg Tablet 20 MG PO (09:05)
--- NOTE | 2023-12-29 10:12 | PC.CHAP ---
Pastoral Care Encounter/Spiritual Assessment Type of Contact [] Declined medical receptionist visit [] Patient/Family/Request visit [] Outpatient visit [] Follow-up visit [] Physician referral [] Code/Alert [x] Routine visit [] Staff referral [] Actively dying [] Patient sleeping [] Family support [] [] Out of room [] Palliative care [] [] Receiving care in room [] Pre-surgical visit [] Trauma [] Long length of stay [] ICU visit [] Other: Relational/Emotional Strength [x] Patient feels connected with others/family/visitors/staff [] Distress [] Loneliness/isolation [] Abandonment Spirituality of Patient [] Person of Toya [] Attends Sikh of their [place]a [] Believes in Prayer [] Reads Bible or Voodoo materials [x] There are Spiritual issues to be addressed Purification Operator Interventions [] Prayer [x] Active listening [x] Non-anxious presence [] Spiritual/emotional support [] Crisis/trauma care [x] Spiritual counseling [] Bereavement support [] Provided bereavement packet [] Provided Bible/devotional materials [] Provided toy/stuffed animal, coloring book to patient or family member [] Provided Communion [] Anointing/[place] [] Salvation [] Completed spiritual assessment [] Other: Impact on Illness or Injury [] Angry [] Fearful [] Anxious [] Often cries [] Exhaustion [] Unable to work [] Unable to attend catholic [] Unable to walk/stand [] Unable to read [] Unable to drive [] Unable to eat/drink [] Unable to sleep [] Unable to be with family [] Patient intubated [] Other: Summary once a believer, world travels caused doubts Time spent with patient 20 min
[2023-12-29] MEDS: sodium chloride 0.9% 1,000 ML 50 ML IV (10:45)
[2023-12-29] MEDS: diphenhydrAMINE 50 mg Capsule PO (10:45)
--- NOTE | 2023-12-29 11:16 | PC.SOCIAL ---
IMM Updated IMM dated and initialed, copy placed in chart and given to patient.
--- NOTE | 2023-12-29 13:00 | XACV_ITS ---
Exam Room: 2 Ht: 168 cm Wt: 92 kg BSA: 2.10 m2 Gender: Female : 1940 Any Known Allergies: No known allergies Exam Priority: Routine Procedure(s): Procedure Description: Diagnostic procedure Procedure Description: PCI procedure Procedure Description: Drug Eluting Coronary Stent Diagnostic Cath Status: Urgent Diagnostic Findings * Left Main has no significant disease. * Circumflex has no significant disease. * Right Coronary Artery has mild luminal irregularities. * Mid Left Anterior Descending: severe 80% stenosis, ALEXANDRO: 3 flow. * Coronary angiography shows right dominance. PCI Status: Urgent PCI Indication: NSTE - ACS Interventional Findings * Procedure detail: We engaged left main artery with XB 3.5 guide catheter. IV heparin was administered to maintain anticoagulation. 0.014 run-through guidewire was used to cross the stenosis and was placed in distal vessel. We predilated the stenosis with 2.75 x 15 mm semicompliant balloon. This was followed by placement of 3.0 x 22 mm resolute Gwendolyn drug-eluting stent. At this time final angiogram was performed that showed excellent stent expansion and no residual stenosis and ALEXANDRO III flow. Guidewire and guide catheter were removed. Patient left the Manager Retail Sales in a stable condition.. * Mid Left Anterior Descendin% stenosis treated with a AB TREK 2.75X15 RX BALLOON, and MDT R GWENDOLYN 3.0X22 DONTE. 0% residual stenosis, ALEXANDRO: 3 flow. Conclusions 1. Severe mid LAD stenosis status post successful revascularization with 1 stent.. 2. Mid Left Anterior Descending was treated with a Balloon, and Drug Eluting Stent. Recommendations * Continue eliquis and plavix. * High intensity statin therapy. * Outpatient cardiology follow up in 2 weeks. Interventional RX Recommendation: PCI w/o planned CABG Diagnostic RX Recommendation: PCI w/o planned CABG Anticoagulation: Heparin Pressures Phase:Rest AO : 152 / 144 ( 126 ) @ 2:33:00 PM Clinical Evaluation EBL: 5mL-10mL Procedural Details Procedure Consent Obtained. Pre-Procedure Time Out. Identified patient by full name and date of as verbalized by the patient/guarantor. Does the consent match the physician's order: Yes. Accurate & Complete Informed Consent: Yes. Inpatient/Outpatient History & Physical on Chart: Yes. If H&P is completed, is and addenduem needed: No; If yes, is the addendum complete: N/A. Visualize and Verify Site with Patient/Guarantor: N/A. Relevant Radiology Images available: Yes. Pre-op teaching completed and patient verbalized understanding. The risks, benefits, and alternatives of sedation and/or procedure were discussed by physician. The patient agrees to continue. Procedure started. [facility] Clinical Fraility Score: 4: Vulnerable. Manager Retail Sales Indications: Other. Chest Pain Symptom Assessment: Atypical Angina. Correct patient, site and procedure confirmed by cath team. Current diagnosis: Chest Pain. PERRLA. Strong, equal hand vault clerk bilaterally. Lungs clear x 5 lobes. IV Site on Arrival: 18 gauge in the left anticubital. Current Diagnosis : Chest Pain. IV Fluids: 0.9% NaCl at KVO. 0 mL infused prior to labor representative. Oxygen started at 2liters/min via nasal canula. right groin was prepped with chloroprep then draped in the usual sterile fashion. right radial was prepped with chloroprep then draped in the usual sterile fashion. Physician notified. Baseline sample Acquired. HR: 42 BPM. Physician arrived. Physician scrubbed in. Immediate Pre-Procedure Time Out. Correct Patient: Yes; Correct Procedure: Yes; Correct Site: Yes; Correct Patient Position: Yes; Correct Supplies: Yes; Dried Flammable Prep: Yes; Blood Products Available: N/A;. Lidocaine 1% infiltrated to the right radial. Arterial access obtained. Wire and needle removed. TR band placed. Hemostasis obtained. Lidocaine 1% infiltrated to the right groin. Arterial access obtained with micropuncture set. A 5 chadian JL4 catheter in over wire. Fidelia Bains RT(R) was relieved by Erich Moss RN, CONVEX GRINDER OPERATOR as monitoring person. Multiple view taken of the left coronary system. Catheter removed over the standard wire. A 5 chadian JR4 catheter in over wire. Multiple views taken of right coronary artery. Catheter removed over the standard wire. 6 chadian XB 3.5 guide catheter was inserted over the wire. Unable to seat guide seated in the LCS. Guide removed over the standard wire. 6 chadian XB 3 guide catheter was inserted over the wire. Guide seated in the LCS. Runthrough guidewire was advanced through the guide catheter to lesion in the mid LAD. Inflation number : 1 A AB TREK 2.75X15 RX BALLOON was prepped and advanced across the Mid LAD , then inflated to 10 FROY for 0:12 seconds. Inflation number: 2 The AB TREK 2.75X15 RX BALLOON was reinflated across the Mid LAD, to 10 FROY for 0:15 seconds. Balloon out over the wire. Results checked. Inflation Number : 3 A MDAry R GWENDOLYN 3.0X22 DONTE -Lot Number# [id number] was prepped and advanced across the Mid LAD. The stent was deployed at 12 FROY for 0:18 seconds. EXP 10/13/2025. Results checked. Stent balloon out over wire. Wire out. Results checked. Guide catheter out over the wire. Physician review of films. A Right femoral angiogram was performed to determine safe placement of closure device. A Angio-Seal VIP ([facility]) was successful obtaining hemostatsis at the Right Femoral artery insertion site. Patient had theraputic lovenox dosing. No heparin indicated. Angioseal placed without complications. No signs or symptoms of hematoma noted. Sterile dressing applied per usual sterile fashion. LOT [id number] EXP 07/24/2024. Post Procedure: Pulses reassessed and unchanged. PERRLA. Strong, equal hand vault clerk bilaterally. No VTE prophylaxis required. Medication's Wasted: Versed 1 mg; Fentanyl 75 mcg; Heparin 1000 units. Total IV fluids: 280 mL. Fluoro: 8:05. Contrast type used: Omnipaque 300 mg/mL, 150 mL bottle. [id number]. Post-op diagnosis: Severe mid lad stenosis; status post pci with DONTE. Complications: None. Estimated blood loss: 5mL-10mL. Responsiveness - Normal response to verbal stimuli; alert and oriented, PERRLA. Airway - Unaffected, no intervention required; spontaneous ventilation. Circulation: W/N/L, pulses unchanged. Nausea/Vomiting: No. Procedure completed. Patient transferred by bed to 1st floor. Vital chart was stopped. Access Site Site: Right Femoral artery Sheath Size: 6 Fr Hemostasis Method: Angio-Seal VIP ([facility]) Hemostasis Success: Successful Procedure Medications Start: 1:21 PM Stop: 1:21 PM Medication: Versed 1 mg and Fentanyl 25 mcg Amount: 1 Route: I.V. Start: 1:32 PM Stop: 1:32 PM Medication: 0.9% Saline Amount: 250 ml Route: I.V. bolus I, the attending physician, have reviewed and verified all procedure medications. Yes, all medications given per verbal order History/Risk Factors Hypertension: Yes Dyslipidemia: Yes Peripheral Arterial Disease (PAD): No Myocardial Infarction (CO): No Obesity: No Renal Disease: No Tobacco Use: Former Prior Interventions PCI: No CABG: No Valve Surgery: No Report Signatures Finalized by Jonathan Larry MD on 01/05/2024 02:09 PM
--- NOTE | 2023-12-29 13:20 | W.PM.OPSUD ---
Surgery/Procedure H&P Update DATE OF PROCEDURE: December 29, 2023 DATE H&P PERFORMED: 12/29/23 H&P UPDATE INFORMATION: I have reviewed H&P completed within last 30 days, I have examined patient prior to procedure and No changes to prior documentation PREOP DIAGNOSIS: NSTEMI PRIMARY INDICATION FOR PROCEDURE: NSTEMI PLANNED PROCEDURE: Left heart cath with possible percutaneous coronary intervention PATIENT REASSESSED PRIOR TO SEDATION, WITH NO CHANGE NOTED: Yes PHYSICAL EXAM: alert, oriented x 3, clear to auscultation bilaterally and regular rate & rhythm AIRWAY EVAL/ANESTHESIA PLAN: normal airway, ASA III, Local Anesthesia, Risks, benefits & alternatives of sedation and/or procedure discussed and Patient agrees to continue as planned ADDITIONAL INFORMATION: Moderate sedation
--- NOTE | 2023-12-29 16:16 | P.PN_ITS ---
Subjective 2 Subjective: Patient was seen this morning, she feels better she tells me that she is on currently on 2 L, denies any nausea, no vomiting, she does tell me that about 3 weeks ago she was positive for COVID, she did report increased shortness of breath and chest pain over the last 3 weeks. We discussed her CT evidence of a pulmonary embolism and left lower extremity DVT. However she tells me that over the last year, she has had a slow decline, she has had progressive increase shortness of breath with exertion, and chest pain with exertion that has been going on well before she was diagnosed with COVID. She tells me that this is roughly been going on for the last year, she has been feeling increasingly short of breath, increasingly weak, Vitals/I&O/Wt Last Vital Signs Temp 97.7 F 12/29/23 11:34 Pulse 72 12/29/23 16:00 Resp 22 H 12/29/23 16:00 BP 123/62 12/29/23 16:00 Pulse Ox 98 12/29/23 14:45 O2 Del Method Room Air 12/29/23 11:34 O2 Flow Rate 2 12/29/23 08:00 12/29/23 12/29/23 12/29/23 06:59 14:59 22:59 Intake Total 450 / 450 Output Total 400 / 400 Balance 450 / 450 -400 / -400 Weight last 48 hrs Weight 92.397 kg Weight 91.626 kg Weight 91.626 kg Physical Exam 2 Const: COMMON NORMALS: no acute distress and patient oriented x3 HENMT: COMMON NORMALS: normocephalic HEAD & SCALP: normocephalic Resp: COMMON NORMALS: normal respiratory effort, No retractions and No use of accessory muscles AUSCULTATION: crackles Cardio: COMMON NORMALS: regular rate, regular rhythm, S1 normal heart sound present and S2 normal heart sound present RATE: regular rate RHYTHM: r egular rhythm HEART SOUNDS: S1 normal heart sound present and S2 normal heart sound present GI: COMMON NORMALS: Normal to inspection, nondistended, normoactive bowel sounds present and non-tender Extremity: COMMON NORMALS: no pedal edema Neuro: COMMON NORMALS: patient oriented x3 Psych: COMMON NORMALS: mental status grossly normal Data 12/29/23 03:25 12/29/23 03:25 A&P Assessment and plan (1) Chest pain: (2) Elevated troponin: (3) Elevated d-dimer: (4) Uncontrolled hypertension: (5) Productive cough: (6) Difficulty walking: (7) Bilateral pulmonary embolism: (8) Left leg DVT: Plan Bilateral pulmonary embolism, main and segmental arteries, with right heart strain, with left lower extremity DVT CT angiogram CT/CT angio chest PE protcl [id number] IMPRESSION: Pulmonary emboli in bilateral main and segmental pulmonary arteries with right heart strain. Venous [place] US/[place] [id number] IMPRESSION: Left popliteal, peroneal and posterior tibial deep vein thrombosis. ? Plan ? Monitor respiratory status closely ? Continue therapeutic Lovenox ? Cardiac echo ordered ? Telemetry monitoring ? Likely provoked from COVID-19 pneumonia 3 weeks ago Chest pain, NSTEMI ? Some component likely related to bilateral pulmonary embolism as above, and right heart strain ? However she does report a year history of progressive chest pain and shortness of breath ? Currently n.p.o. ? Plans on cardiac catheterization this morning ? Continue aspirin, statin Full code # Lovenox for DVT prophylaxis Attestations 2 Medical Necessity Statement*: Patient requires hospitalization, inpatient, greater than 2 midnights, for bilateral pulmonary embolism, left lower extremity DVT, right heart strain, NSTEMI, chest pain, proceeding to cardiac Requiring anticoagulant therapy and monitoring respiratory status for PE, spoke to patient, spoke to cardiology Diagnoses Chest pain R07.9 Elevated troponin R79.89 Elevated d-dimer R79.89 Uncontrolled hypertension I10 Productive cough R05.8 Difficulty walking R26.2 Bilateral pulmonary embolism I26.99 Left leg DVT I82.402
[2023-12-29] MEDS: apixaban 5 mg Tablet 10 MG PO (21:14)
--- NOTE | 2023-12-29 22:27 | USCV_ITS ---
Janny Sesay Age: 83 Gender: F : 1940 Exam Date: 12/29/2023 02:06 Ordering Phys: Kenyon Long MD Technologist: ZARINA Exam Location: [facility] [place] Indication: chest pain, Lower extremity edema, SOB BP: 171 / 99 HR: 61 Rhythm: Sinus Technical Quality: Adequate MEASUREMENTS (Male / Female) Normal Values 2D ECHO LV Diastolic Diameter PLAX 3.0 cm 4.2 - 5.9 / 3.9 - 5.3 cm IVS Diastolic Thickness 2.1 cm 0.6 - 1.0 / 0.6 - 0.9 cm IVS Systolic Thickness 1.7 cm LVPW Diastolic Thickness 1.5 cm 0.6 - 1.0 / 0.6 - 0.9 cm LVPW Systolic Thickness 1.7 cm LVOT Diameter 1.7 cm LV Ejection Fraction 2D Teich 61.7 % LV Ejection Fraction MOD 4C 67.0 % LV Ejection Fraction MOD 2C 59.6 % LV Ejection Fraction 2C AL 60.6 % LA Diameter 2.2 cm Aorta at Sinotubular Diameter 2.6 cm IVC Diameter 1.9 cm M-MODE LA Ao Ratio MM 1.2 AV Cusp Separation MM 1.5 cm DOPPLER AV Peak Velocity 117.0 cm/s LVOT Peak Velocity 104.0 cm/s AV Area Cont Eq vti 2.8 cm squared AV Area Cont Eq pk 2.0 cm squared MV Peak Velocity 87.0 cm/s MV Area PHT 3.0 cm squared Mitral E to A Ratio 0.5 TV Peak Velocity 301.7 cm/s TR Peak Velocity 339.0 cm/s TR Peak Gradient 46.0 mmHg TV Peak E Velocity 51.0 cm/s Right Atrial Pressure 3.0 mmHg Pulmonary Artery Systolic Pressu 49.0 mmHg PV Peak Velocity 92.0 cm/s FINDINGS Left Ventricle Normal left ventricular size and systolic function, EF 60%. No regional wall motion abnormalities. Mild left ventricular hypertrophy. Grade I/IV diastolic dysfunction (abnormal relaxation filling pattern), normal to mildly elevated filling pressures. Right Ventricle The right ventricle is normal in size and function. Right Atrium The right atrium is normal in size. Left Atrium The left atrium is normal in size. Mitral Valve No gross abnormalities noted Aortic Valve Thickened aortic valve. Tricuspid Valve Mild tricuspid valve regurgitation. Estimated pulmonary artery peak systolic pressure of 49 mmHg Pulmonic Valve No gross abnormalities noted Pericardium Normal pericardium without effusion. Aorta Normal ascending aorta dimension. IVC Inferior vena cava not visualized. CONCLUSIONS Normal left ventricular size and systolic function, EF 60%. No regional wall motion abnormalities. Mild left ventricular hypertrophy. Grade I/IV diastolic dysfunction (abnormal relaxation filling pattern), normal to mildly elevated filling pressures. Thickened aortic valve. Mild tricuspid valve regurgitation. Mild pulmonary hypertension - estimated pulmonary artery peak systolic pressure of 49 mmHg. There is no pericardial effusion. There are no intracardiac masses. No similar previous studies are available for comparison Dr Kendal Morgan MD FAC (Electronically Signed) Final Date: 29 December 2023 19:06 S
[2023-12-30] VITALS (8 sets, daily range): BP systolic 114–137; BP diastolic 64–71; PULSE 68–71; RESP 17–24; TEMP 36.4–36.6; O2SAT 84–97; BMI 32.3
[2023-12-30] MEDS: sodium chloride 0.9% 1,000 ML 100 ML IV (01:54)
[2023-12-30 03:49] LABS: Basophils % 0.4 %; Eosinophils # 0.1 10^3/uL (0.0-0.8); Eosinophils % 1.5 %; Hematocrit 41.2 % (36-47); Lymphocytes # 2.6 10^3/uL (0.8-4.8); Mean Corpuscular HGB Conc 32.5 g/dL (30-55); Mean Corpuscular Hemoglobin 30.1 pg (27-33); Mean Corpuscular Volume 92.6 fl (85-98); Mean Platelet Volume 9.6 fL (7.4-10.4); Monocytes # 0.8 10^3/uL (0.2-0.9); Monocytes % 9.5 %; Neutrophils # 4.57 10^3/uL (1.8-7.7); Neutrophils % 56.4 %; Nucleated Red Blood Cells % 0 %; Platelet Count 194 10^3/cmm (157-399); Red Blood Count 4.45 10^6/uL (3.85-5.65); Red Cell Distribution Width 13.4 % (12.1-15.1)
[2023-12-30 04:13] LABS: Blood Urea Nitrogen 15 mg/dL (8-23); Calcium 8.5 mg/dL (8.5-10.5); Carbon Dioxide 25 mmol/L (22-29); Chloride 106 mmol/L (98-107); Creatinine Clr Calc Pharmacy 60.4508; Glucose 116 mg/dL (65-115); Osmolality Calculated 292 mOsm/kg (285-295); Sodium 140 mmol/L (136-145)
[2023-12-30 04:19] LABS: Anion Gap 13.1 (5-19); Potassium 4.1 mmol/L (3.5-5.1)
--- NOTE | 2023-12-30 06:14 | PC.NURSE ---
Patient stated to nurse there are to many damn wires hanging on me. Get them off. and that she wanted to go home today. Patient then proceeded to take nc off and throw it on floor. She is currently at 95% on RA.
--- NOTE | 2023-12-30 08:51 | P.PN_ITS ---
Subjective 2 Subjective: Patient had severe LAD stensosis and is s/p successful revascularization with 1 stent. Vitals/I&O/Wt Last Vital Signs Temp 97.6 F 12/30/23 08:00 Pulse 71 12/30/23 08:00 Resp 17 12/30/23 08:00 BP 137/64 12/30/23 08:00 Pulse Ox 97 12/30/23 08:00 O2 Del Method Room Air 12/30/23 00:00 O2 Flow Rate 2 12/29/23 08:00 12/29/23 12/30/23 12/30/23 22:59 06:59 14:59 Intake Total 854.167 / 854.167 Output Total 350 / 750 Balance 504.167 / 104.167 Weight last 48 hrs Weight 200 lb Weight 203 lb 11.2 oz Weight 202 lb Weight 202 lb Physical Exam 2 Narrative: GENERAL: Patient is alert, awake and oriented x3. [] NECK: No jugular vein distension. [] HEENT: No cyanosis. No icterus. No pallor. [] HEART: Regular S1 and S2. No murmur, rub or gallop. [] LUNGS: Clear to auscultate bilaterally. [] CENTRAL NERVOUS SYSTEM: Grossly nonfocal. [] EXTREMITIES: Lower extremities with 1+ edema bilaterally. Data 12/30/23 03:20 12/30/23 03:20 A&P Assessment and plan (1) Bilateral pulmonary embolism: (2) Left leg DVT: (3) Uncontrolled hypertension: (4) Chest pain: (5) NSTEMI (non-ST elevated myocardial infarction): Plan Patient was found to have severe LAD stenosis and underwent successful revascularization with 1 stent. Continue Eliquis and started on Plavix. High intensity statin therapy and beta tammi Echo shows normal LV systolic function. Thank you for involving us with care of this patient.Patient is stable to be discharged from cardiology standpoint. Please call with questions. Attestations 2 Medical Necessity Statement*: Care expected to cross 2 midnights. Coding Level of Care Code Acute Code for Chg Fwd Diagnoses Bilateral pulmonary embolism I26.99 Left leg DVT I82.402 Uncontrolled hypertension I10 Chest pain R07.9 NSTEMI (non-ST elevated myocardial infarction) I21.4
[2023-12-30] MEDS: clopidogrel 75 mg Tablet PO (10:05)
[2023-12-30] MEDS: amlodipine 5 mg Tablet PO (10:05)
[2023-12-30] MEDS: aspirin 81 mg EC Tablet PO (10:06)
[2023-12-30] MEDS: guaiFENesin 600 mg Tablet PO (10:06)
[2023-12-30] MEDS: atorvastatin 40 mg Tablet 20 MG PO (10:06)
[2023-12-30] MEDS: apixaban 5 mg Tablet 10 MG PO (10:07)
--- NOTE | 2023-12-30 10:37 | P.DS_ITS ---
Discharge Providers Date of Admission: 12/28/23 20:08 Date of Discharge: December 30, 2023 Attending Provider at Admission: Rere Cortez Attending Provider at Discharge: Monty Irby MD Primary Care Provider: Katey Arizmendi MD Diagnoses at Discharge Discharge Diagnosis (1) Bilateral pulmonary embolism: Status: Acute (2) Left leg DVT: Status: Acute (3) Uncontrolled hypertension: Status: Acute (4) Chest pain: Status: Acute (5) NSTEMI (non-ST elevated myocardial infarction): Status: Acute Reason for Visit Reason for Visit: Chest Pain Hospital Course Hospital Course This is a 83-year-old female with a past medical history of hyperlipidemia, history of migraine headaches, who presents [facility] due to chest pain and shortness of breath Patient reports a history of COVID-19 3 weeks ago, she presents with progressive worsening of her chest pain and shortness of breath. ? Was diagnosed with bilateral pulmonary embolisms CT/CT angio chest PE protcl [id number] IMPRESSION: Pulmonary emboli in bilateral main and segmental pulmonary arteries with right heart strain. -With acute hypoxic respiratory failure -Venous ultrasound ? US/[place] [id number] IMPRESSION: Left popliteal, peroneal and posterior tibial deep vein thrombosis. -Patient was monitored as inpatient, received oxygen therapy, Lovenox therapy, PT OT, overall patient clinically improved -Likely etiology behind her bilateral PEs, and her left lower extremity EVT is her COVID-19 infection -Will discharge her on Eliquis therapy -Patient was advised to follow-up with her primary care provider in 1 week for recheck hemoglobin ? She was advised that if she were to have any bloody or black stools or significant falls to immediately go to the emergency room Patient does report a year-long history of chest pain and progressively worsening shortness of breath fatigue, malaise ? Seen by cardiology ? Cardiac echo as below CONCLUSIONS Normal left ventricular size and systolic function, EF 60%. No regional wall motion abnormalities. Mild left ventricular hypertrophy. Grade I/IV diastolic dysfunction (abnormal relaxation filling pattern), normal to mildly elevated filling pressures. Thickened aortic valve. Mild tricuspid valve regurgitation. Mild pulmonary hypertension - estimated pulmonary artery peak systolic pressure of 49 mmHg. There is no pericardial effusion. There are no intracardiac masses. No similar previous studies are available for comparison ? Patient underwent cardiac angiography, she underwent cardiac stent placement to LAD, tolerated procedure well, no recurrent chest pain managed on Eliquis as above, statin, Plavix ? She will be discharged, with close follow-up with cardiology as outpatient, advised if she were to have any recurrent chest pain to go to the emergency room ? As patient is being discharged on Eliquis and Plavix, discussed morbidity and mortality associate with life-threatening bleeding, significant trauma and injury, she voiced understanding, all questions answered, shared decision making, ? Will follow-up with cardiology as outpatient - I am discharging you on Eliquis for your DVT and your pulmonary embolism ? Eliquis and Plavix are very strong blood thinners, if you develop bloody or black stools, or if you have a significant fall or head trauma please immediately go to the emergency room as this can result in a life-threatening bleed and morbidity and mortality associated ? Please do not stop taking Eliquis or Plavix, as these are keeping your cardiac stent open, and decreasing her risk of developing another blood clot ? Please have your primary care provider recheck your hemoglobin in 1 week ? If you have any recurrent chest pain or shortness of breath please go to the emergency room ? Please have your primary care provider recheck your blood pressure ? If you have any lightheadedness or dizziness please go to the emergency room Physical Exam Const: COMMON NORMALS: no acute distress and patient oriented x3 Resp: COMMON NORMALS: normal respiratory effort, No retractions, No use of accessory muscles and clear to auscultation bilaterally AUSCULTATION: clear to auscultation bilaterally Cardio: COMMON NORMALS: regular rate, regular rhythm, S1 normal heart sound present and S2 normal heart sound present RATE: regular rate RHYTHM: regular rhythm HEART SOUNDS: S1 normal heart sound present and S2 normal heart sound present GI: COMMON NORMALS: Normal to inspection, nondistended, normoactive bowel sounds present and non-tender Extremity: COMMON NORMALS: no pedal edema Neuro: COMMON NORMALS: patient oriented x3 Psych: COMMON NORMALS: mental status grossly normal Discharge Data Studies Completed and Pending Completed Studies During Hospitalization Category Date Time Status CTA chest [CT angio chest PE protcl [id number]] Routine Cat Scan 12/28/23 22:19 Completed XR chest 1V portable [id number] Stat Exams 12/28/23 16:35 [place] [id number] Routine Ultrasound 12/28/23 22:27 Completed CV. echo complete* [id number] Routine Ultrasound 12/29/23 22:27 Completed Pending at discharge Category Date Time Status [employer]IST request for service Routine Exams 12/29/23 13:00 Taken Basic Metabolic Panel AM LABS Lab 12/31/23 04:00 Ordered Complete Blood Count w/Auto AM LABS Lab 12/31/23 04:00 Ordered Radiology Impressions Chest X-Ray 12/28/23 16:35 IMPRESSION: No acute findings. Chest CTA 12/28/23 22:19 IMPRESSION: Pulmonary emboli in bilateral main and segmental pulmonary arteries with right heart strain. ADDENDUM: 12/29/23 0057 The findings were acknowledged and understood.THIS REPORT CONTAINS FINDINGS THAT MAY BE CRITICAL TO PATIENT CARE. As of 12:55 AM CDT on 12/29/2023, RERE CORTEZ confirmed receipt the exam report, is aware of the critical finding and indicated no conference call was necessary to discussed the exam findings. Venous Duplex 12/28/23 22:27 IMPRESSION: Left popliteal, peroneal and posterior tibial deep vein thrombosis. Laboratory Results WBC 8.10 10^3/uL (3.29-11.43) 12/30/23 03:20 RBC 4.45 10^6/uL (3.85-5.65) 12/30/23 03:20 Hgb 13.40 g/dL (11.27-16.99) 12/30/23 03:20 Hct 41.2 % (36-47) 12/30/23 03:20 MCV 92.6 fl (85-98) 12/30/23 03:20 MCH 30.1 pg (27-33) 12/30/23 03:20 MCHC 32.5 g/dL (30-55) 12/30/23 03:20 RDW 13.4 % (12.1-15.1) 12/30/23 03:20 Plt Count 194 10^3/cmm (157-399) 12/30/23 03:20 MPV 9.6 fL (7.4-10.4) 12/30/23 03:20 Neut % (Auto) 56.4 % 12/30/23 03:20 Lymph % (Auto) 32.0 % 12/30/23 03:20 [place] % (Auto) 9.5 % 12/30/23 03:20 Eos % (Auto) 1.5 % 12/30/23 03:20 Baso % (Auto) 0.4 % 12/30/23 03:20 Neut # (Auto) 4.57 10^3/uL (1.8-7.7) 12/30/23 03:20 Lymph # (Auto) 2.6 10^3/uL (0.8-4.8) 12/30/23 03:20 [place] # (Auto) 0.8 10^3/uL (0.2-0.9) 12/30/23 03:20 Eos # (Auto) 0.1 10^3/uL (0.0-0.8) 12/30/23 03:20 Baso # (Auto) 0.0 10^3/uL (0.0-0.1) 12/30/23 03:20 Nucleated RBC % (auto) 0 % 12/30/23 03:20 Nucleated RBCs # 0.0 /100WBC 12/30/23 03:20 D-Dimer 12.76 ug/mLFEU (0-0.59) H 12/28/23 16:40 Sodium 140 mmol/L (136-145) 12/30/23 03:20 Potassium 4.1 mmol/L (3.5-5.1) 12/30/23 03:20 Chloride 106 mmol/L (98-107) 12/30/23 03:20 Carbon Dioxide 25 mmol/L (22-29) 12/30/23 03:20 Anion Gap 13.1 (5-19) 12/30/23 03:20 BUN 15 mg/dL (8-23) 12/30/23 03:20 Creatinine 0.8 mg/dL (0.5-0.9) 12/30/23 03:20 GFR Calculation Not Reportable 12/30/23 03:20 Glucose 116 mg/dL (65-115) H 12/30/23 03:20 Calculated Osmolality 292 mOsm/kg (285-295) 12/30/23 03:20 Calcium 8.5 mg/dL (8.5-10.5) 12/30/23 03:20 Total Bilirubin 0.3 mg/dL (0.15-1.2) 12/28/23 16:40 AST 17 U/L (0-32) 12/28/23 16:40 ALT 21 U/L (0-33) 12/28/23 16:40 Alkaline Phosphatase 98 U/L (35-105) 12/28/23 16:40 Troponin T Baseline 66 ng/L (0-10) H 12/28/23 16:40 Troponin T 120 Minute 56.30 ng/L (0-10) H 12/28/23 18:38 Delta Troponin T -9.70 ABS# (0-10) L 12/28/23 18:38 Troponin T Hi Sens 6Hr 51.40 ng/L (0-10) H 12/28/23 22:49 Troponin T Hi Sens 6Hr Delta -14.60 ng/L (0-12) L 12/28/23 22:49 Total Protein 6.7 g/dL (6.6-8.7) 12/28/23 16:40 Albumin 4.0 g/dL (3.5-5.2) 12/28/23 16:40 Globulin 2.7 g/dL (1.3-4.6) 12/28/23 16:40 Vitals Last Vital Signs Temp 97.6 F 12/30/23 08:00 Pulse 71 12/30/23 08:00 Resp 17 12/30/23 08:00 BP 137/64 12/30/23 08:00 Pulse Ox 97 12/30/23 08:00 O2 Del Method Room Air 12/30/23 00:00 O2 Flow Rate 2 12/29/23 08:00 Discharge Plan Discharge Patient Disposition: Home Condition: Stable Prescriptions: New nitroglycerin 0.4 mg Tablet, Sublingual 0.4 mg sublingual Q5M PRN (Reason: Chest Pain) 30 Days Qty: 30 0RF amlodipine 5 mg Tablet 5 mg PO DAILY 30 Days Qty: 30 0RF clopidogrel 75 mg Tablet 75 mg PO DAILY 30 Days Qty: 30 0RF Eliquis DVT-PE Treat 30D Start 5 mg (74 tabs) tablets,dose pack See Rx Instructions .ROUTE .COMPLEX Qty: 74 0RF Rx Instructions: orally per package directions Continued simvastatin 10 mg tablet 10 mg PO BID propranolol 60 mg tablet 60 mg PO DIRECTED Discharge Orders: Discharge Order (Routine); Ordered 12/30/23 Ordered By: Monty Irby Referrals: Katey Arizmendi MD [Primary Care Provider] - Juan Carlos Levi MD [Physician] - 1-3 days Jonathan Larry M.D [Physician] - 1 week Discharge Diet: Cardiac Discharge Activity: Resume usual activity Patient Instructions: Opioid Safety Activity Restrictions/Additional Instructions: - I am discharging you on Eliquis for your DVT and your pulmonary embolism ? Eliquis and Plavix are very strong blood thinners, if you develop bloody or black stools, or if you have a significant fall or head trauma please immediately go to the emergency room as this can result in a life-threatening bleed and morbidity and mortality associated ? Please do not stop taking Eliquis or Plavix, as these are keeping your cardiac stent open, and decreasing her risk of developing another blood clot ? Please have your primary care provider recheck your hemoglobin in 1 week ? If you have any recurrent chest pain or shortness of breath please go to the emergency room ? Please have your primary care provider recheck your blood pressure ? If you have any lightheadedness or dizziness please go to the emergency room Discharge Attestations Time Spent in Discharge Care*: greater than 30 min Quality Metrics Clinical Quality Measures [ No reported AMI, CVA or VTE this stay] Coding Level of Care Code 02808 Total time (in minutes) for Discharge: 45 Diagnoses Bilateral pulmonary embolism I26.99 Left leg DVT I82.402 Uncontrolled hypertension I10 Chest pain R07.9 NSTEMI (non-ST elevated myocardial infarction) I21.4
== END 2023-12-30 12:41 | disposition home or self-care (01) | DRG 321 ==
LOC: ER 19:48 → CSU 20:10
PROVIDERS: Emergency Medicine; Internal Medicine; Admitting Provider Internal Medicine; Emergency Provider Emergency Medicine; PCP Family Medicine; Visit Provider Family Medicine
PROC: 027034Z Dilation of Coronary Artery, One Artery with Drug-eluting Intraluminal Device, Percutaneous Approach (ICD-10-PCS; principal; 2023-12-29 12:00)
PROC: 027034Z Dilation of Coronary Artery, One Artery with Drug-eluting Intraluminal Device, Percutaneous Approach (ICD-10-PCS; 2023-12-29 12:00)
DX: I21.4 Non-ST elevation (NSTEMI) myocardial infarction (principal); I26.99 Other pulmonary embolism without acute cor pulmonale; I82.432 Acute embolism and thrombosis of left popliteal vein; I82.452 Acute embolism and thrombosis of left peroneal vein; I82.442 Acute embolism and thrombosis of left tibial vein; I10 Essential (primary) hypertension; R05.8 Other specified cough; R26.2 Difficulty in walking, not elsewhere classified; G25.0 Essential tremor; E78.5 Hyperlipidemia, unspecified; R00.1 Bradycardia, unspecified; I27.29 Other secondary pulmonary hypertension; I25.10 Atherosclerotic heart disease of native coronary artery without angina pectoris; Z79.899 Other long term (current) drug therapy; Z86.16 Personal history of COVID-19
CPT/HCPCS: 36415; 71045; 71275; 80048; 80053; 84484; 85025; 85378; 93005; 93306; 93454; 93970; 94760; 96372; 97163; 99152; 99153; 99285; C1725; C1760; C1769; C1874; C1887; C1894; C9600; G0269; J1644; J1650; J2250; J3010; J3490; J7030; Q0163; Q9967

== ENCOUNTER → 2024-01-09 13:57 | Outpatient (BNVA) | payer MEDICARE, SELFPAY | PROVIDERS: PCP Family Medicine; Visit Provider Nurse Practitioner Family | DX: I25.10 Atherosclerotic heart disease of native coronary artery without angina pectoris (principal); I10 Essential (primary) hypertension; Z86.711 Personal history of pulmonary embolism; Z79.01 Long term (current) use of anticoagulants; I27.20 Pulmonary hypertension, unspecified; Z86.718 Personal history of other venous thrombosis and embolism; Z87.891 Personal history of nicotine dependence | CPT/HCPCS: 99214 ==

== ENCOUNTER → 2024-03-05 09:55 | Outpatient (BNVA) | payer MEDICARE, SELFPAY | PROVIDERS: PCP Family Medicine; Visit Provider Internal Medicine | DX: I25.10 Atherosclerotic heart disease of native coronary artery without angina pectoris (principal); I11.0 Hypertensive heart disease with heart failure; I50.30 Unspecified diastolic (congestive) heart failure; Z86.718 Personal history of other venous thrombosis and embolism; Z79.01 Long term (current) use of anticoagulants; Z86.711 Personal history of pulmonary embolism; Z87.891 Personal history of nicotine dependence | CPT/HCPCS: 99214 ==

== ENCOUNTER → 2024-07-18 13:31 | Outpatient (BNVA) | payer MEDICARE, SELFPAY | PROVIDERS: PCP Family Medicine; Visit Provider Internal Medicine | DX: R06.09 Other forms of dyspnea (principal); R07.9 Chest pain, unspecified; R42 Dizziness and giddiness; R00.2 Palpitations; I25.10 Atherosclerotic heart disease of native coronary artery without angina pectoris; I11.0 Hypertensive heart disease with heart failure; I50.30 Unspecified diastolic (congestive) heart failure; Z86.718 Personal history of other venous thrombosis and embolism; Z79.01 Long term (current) use of anticoagulants; Z87.891 Personal history of nicotine dependence | CPT/HCPCS: 99214 ==

== ENCOUNTER 2024-08-09 10:26 | Outpatient (CLI) | payer MEDICARE, SELFPAY ==
--- NOTE | 2024-08-09 10:15 | USCV_ITS ---
Lázaro Janny Age: 83 Gender: F : 1940 Exam Date: 08/09/2024 10:43 Ordering Phys: Jonathan Larry M.D ([email or web address]) Technologist: CHARLA [place] [facility] [place]: SoB BP: 164 / 88 HR: 56 Rhythm: Sinus Technical Quality: Adequate MEASUREMENTS (Male / Female) Normal Values 2D ECHO LV Diastolic Diameter PLAX 2.9 cm 4.2 - 5.9 / 3.9 - 5.3 cm IVS Diastolic Thickness 0.8 cm 0.6 - 1.0 / 0.6 - 0.9 cm IVS Systolic Thickness 1.1 cm LVPW Diastolic Thickness 0.6 cm 0.6 - 1.0 / 0.6 - 0.9 cm LVPW Systolic Thickness 1.5 cm LVOT Diameter 1.9 cm LV Ejection Fraction 2D Teich 61.8 % LV Ejection Fraction MOD 4C 69.9 % LV Ejection Fraction MOD 2C 55.8 % LV Ejection Fraction 2C AL 55.1 % LA Diameter 3.0 cm RA Systolic Volume 4C AL 38.0 ml RA Systolic Volume 4C MOD 37.4 ml LA Sys Volume AL 42.8 cm cubed LA Sys Volume Index AL 20.8 cm cubed/m squared Aorta at Sinotubular Diameter 1.8 cm IVC Diameter 1.7 cm DOPPLER AV Peak Velocity 133.0 cm/s LVOT Peak Velocity 126.0 cm/s AV Area Cont Eq vti 3.3 cm squared AV Area Cont Eq pk 2.8 cm squared MV Peak Velocity 100.0 cm/s MV Area PHT 2.5 cm squared Mitral E to A Ratio 1.0 TR Peak Velocity 95.0 cm/s TR Peak Gradient 3.6 mmHg TV Peak E Velocity 82.0 cm/s PV Peak Velocity 88.0 cm/s FINDINGS Left Ventricle Technically limited quality echocardiogram because of poor ultrasonic windows. LV systolic function is normal with EF of 55-60%. No regional wall motion abnormalities are seen. Grade 1 diastolic dysfunction Right Ventricle Not well visualized Right Atrium Normal in size Left Atrium Normal in size Mitral Valve Grossly normal. Mild mitral regurgitation Aortic Valve Grossly normal. No significant stenosis or regurgitation. Tricuspid Valve Insufficient TR jet to calculate RVSP Pulmonic Valve Not well visualized Pericardium Normal Aorta Not well visualized IVC Appears to be normal CONCLUSIONS LV systolic function is normal with EF of 55-60%. Grade 1 diastolic dysfunction. Mild mitral regurgitation. Compared to prior echocardiogram from 2023, no significant changes are seen. Jonathan Larry MD (Electronically Signed) Final Date: 18 Aug 2024 12:54 S
== END 2024-08-09 10:27 | disposition home or self-care (01) ==
PROVIDERS: PCP Family Medicine; Visit Provider Internal Medicine
DX: R07.9 Chest pain, unspecified (principal); R06.02 Shortness of breath; R93.1 Abnormal findings on diagnostic imaging of heart and coronary circulation; I34.0 Nonrheumatic mitral (valve) insufficiency
CPT/HCPCS: 93306

== ENCOUNTER → 2025-02-24 15:00 | Outpatient (BNVA) | payer MEDICARE, SELFPAY | PROVIDERS: PCP Family Medicine; Visit Provider Nurse Practitioner Family | DX: I25.10 Atherosclerotic heart disease of native coronary artery without angina pectoris (principal); I11.0 Hypertensive heart disease with heart failure; I50.30 Unspecified diastolic (congestive) heart failure; G25.0 Essential tremor; K08.9 Disorder of teeth and supporting structures, unspecified; Z79.01 Long term (current) use of anticoagulants; Z86.718 Personal history of other venous thrombosis and embolism; Z86.711 Personal history of pulmonary embolism; Z87.891 Personal history of nicotine dependence; U09.9 Post COVID-19 condition, unspecified; R06.02 Shortness of breath; I26.99 Other pulmonary embolism without acute cor pulmonale | CPT/HCPCS: 99213 ==

== ENCOUNTER → 2025-03-20 14:16 | Outpatient (BNVA) | payer MEDICARE, SELFPAY | PROVIDERS: PCP Family Medicine; Referring Provider Nurse Practitioner Family; Visit Provider Internal Medicine | DX: R06.02 Shortness of breath (principal); Z79.01 Long term (current) use of anticoagulants; Z86.711 Personal history of pulmonary embolism; Z86.718 Personal history of other venous thrombosis and embolism; Z87.891 Personal history of nicotine dependence; R94.2 Abnormal results of pulmonary function studies; J44.9 Chronic obstructive pulmonary disease, unspecified | CPT/HCPCS: 99204; Q3014 ==

== ENCOUNTER 2025-03-25 12:50 | Outpatient (CLI) | payer MEDICARE, SELFPAY | END 2025-03-25 12:51 | disposition home or self-care (01) | LOC: RT 12:53 | PROVIDERS: PCP Family Medicine; Visit Provider Internal Medicine | DX: J44.9 Chronic obstructive pulmonary disease, unspecified (principal) | CPT/HCPCS: 94010; 94726; 94729 ==